=== PATIENT | female | born 1950 | race Caucasian/White ===

== ENCOUNTER 2016-04-14 15:57 | Inpatient (IN) | payer MEDICARE ==
[~2016-04-14] VITALS: Ht 162.6 cm; Wt 89.7 kg
[~2016-04-14 15:57] MED LIST: ADVIL200 MG PO; ALDACTONE 25MG25 MG PO; AMBIEN 10MG10 MG PO; AMBIEN 5MG TABLE5 MG PO; AMBIEN5 MG PO; AMLODIPINE5 MG PO; ASPIR-LOW81 MG PO; ASPIRIN E.C. 8181 MG PO; ATIVAN; BLOOD PRESSURE MED PO; CELEXA; CHLORASEPTIC 1180 M3 MM; CLOPIDOGREL PO; COREG12.5 MG PO; CYMBALTA 30MG30 MG PO; DESYREL 50MG50 MG PO; DILANTIN 100MG100 MG PO; DUO-KAPS1 CAP PO; ENALAPRIL10 MG PO; ENALAPRIL20 MG PO; FLEXERIL 1010 MG/TAB PO; HCTZ; HCTZ 25MG TAB25 MG PO; HCTZ 25MG25 MG PO; KEPPRA 500MG500 MG PO; KLONOPIN 1MG1 MG PO; LAMICTAL ODT50 MG TL; LATUDA40 MG PO; LEXAPRO 10MG10 MG PO; LEXAPRO10 MG PO; LEXAPRO20 MG PO; LOPRESSOR; METOPROLOL SUCC50 MG PO; MYRBETR25MG PO; NORCO 325 MG-51 TAB PO; NORVASC 10MG10 MG; NORVASC 10MG10 MG PO; NORVASC 5MG5 MG/TAB PO; NORVASC2.5 MG PO; NORVASC5 MG PO; OCUVITE1 TA1 PO; OXYCODONE; PHENERGAN 25 TA25 MG PO; PLAVIX 75MG TAB75 MG PO; PREDNISONE20 MG PO; PROAIR HFA0.09 MG/AC IH; PROTONIX 40MG T40 MG PO; PROTONIX20 MG PO; PROTONIX40 MG PO; PROVENTIL0.09 MG/A1 IH; SEROQUEL50 MG PO; SIMVASTATIN20 MG PO; TESSALON P100 MG/CAP PO; TOPROL XL50 MG PO; TUSS PO; UNABLE; VALTREX1 GM PO; VASOTEC 10M10 MG/TAB PO; VASOTEC 2.2.5 MG/TAB PO; VASOTEC20 MG PO; WATER PILL; XANAX 0.5MG0.5 MG PO; ZANTAC 150MG T150 MG PO; ZITHROMAX Z PA250 MG PO; ZOCOR; ZOCOR 20MG20 MG; ZOCOR 20MG20 MG PO; ZOFRAN 4MG T4 MG/TAB PO; ZYPREXA2.5 MG PO
[2016-05-12] MEDS ORDERED: VASOTEC 10M10 MG/TAB PO (09:33)
[2016-05-12] MEDS ORDERED: LASIX 40MG TABL40 MG PO (09:34)
[2016-05-12] MEDS ORDERED: COREG 25MG25 MG/TAB PO (09:34)
[2016-05-12] MEDS ORDERED: VITAMIN C500 MG PO (09:35)
[2016-05-12] MEDS ORDERED: FOLIC ACID 40400 MCG PO (09:35)
[2016-05-12] MEDS ORDERED: FERROUS SU325 MG/TAB PO (09:35)
[2016-05-13] VITALS (19 sets, daily range): BP systolic 76–132; BP diastolic 36–83; PULSE 44–66; TEMP 97.5–99.1
[2016-05-14] VITALS (9 sets, daily range): BP systolic 98–158; BP diastolic 40–65; PULSE 68–80; TEMP 97.5–100.2
[2016-05-14 06:13] LABS: HEMATOCRIT 34.9 % (37.0-47.0); HEMOGLOBIN 11.2 g/dl (12.5-16.0)
[2016-05-15] VITALS (7 sets, daily range): BP systolic 100–126; BP diastolic 34–73; PULSE 66–71; TEMP 97.8–98.8
[2016-05-15 07:40] LABS: HEMATOCRIT 34.3 % (37.0-47.0); HEMOGLOBIN 11.3 g/dl (12.5-16.0)
[2016-05-16] VITALS (17 sets, daily range): BP systolic 76–126; BP diastolic 32–63; PULSE 50–88; TEMP 97.3–98.5
[2016-05-16] MEDS ORDERED: ASPI325T6 PO (07:03)
[2016-05-16] MEDS ORDERED: TYLENOL 500MG500 MG PO (07:04)
[2016-05-16] MEDS ORDERED: ROXICODONE 55 MG/TAB PO (07:04)
[2016-05-16] MEDS ORDERED: COLACE 100100 MG/CAP PO (07:06)
[2016-05-16 12:30] LABS: HEMOGLOBIN 10.3 g/dl (12.5-16.0)
[2016-05-16 14:48] LABS: BASO % 0.3 % (0.0-2.0); EOS # 0.2 (0.0-0.7); EOS % 1.6 % (0-4.0); GRAN # 8.2 (1.4-6.5); GRAN % 76.6 % (42.2-75.2); LYMPH # 1.4 (1.2-3.4); LYMPH % 12.8 % (20.0-51.0); MEAN CELL VOLUME 94 fl (80.0-100.0); MEAN CORPUSCULAR HEMOGLOBIN 31 pg (27.0-31.0); MEAN CORPUSCULAR HGB CONC 33 g/dl (33.0-37.0); MEAN PLATELET VOLUME 11.3 fl (7.4-10.4); MONO # 0.9 (0.1-0.6); PLATELET COUNT 202 K/mm3 (130-400); RED BLOOD COUNT 3.34 M/mm3 (4.10-5.30); REDCELL DISTRIBUTION WIDTH-CV 13.3 % (11.5-14.5); WHITE BLOOD COUNT 10.6 K/mm3 (4.8-10.8)
[2016-05-16 15:04] LABS: HYALINE CAST >12 /lpf; PH 5 (5-8); URINE APPEARANCE Hazy; URINE BACTERIA None Seen /hpf; URINE BILIRUBIN Negative (NEGATIVE); URINE BLOOD Negative (NEGATIVE); URINE COLOR Yellow; URINE GLUCOSE Negative (NEGATIVE); URINE KETONE Negative (NEGATIVE); URINE RBC 0-2 /hpf; URINE UROBILINOGEN Negative (NEGATIVE); URINE WBC 0-2 /hpf
[2016-05-16 15:31] LABS: CALCIUM 8.5 mg/dL (8.4-10.2); CREATININE, serum 1.35 mg/dL (0.52-1.25); POTASSIUM 3.9 mmol/L (3.4-5.0)
[2016-05-16 15:51] LABS: ADJUSTED CALCIUM 9.1 mg/dL (8.4-10.2); ALBUMIN 3.3 gm/dL (3.5-5.0); BILIRUBIN,TOTAL 1.1 mg/dL (0.0-1.0); TOTAL PROTEIN 6.2 gm/dL (6.4-8.2)
[2016-05-17] VITALS (7 sets, daily range): BP systolic 105–140; BP diastolic 43–59; PULSE 61–73; TEMP 97.7–98.6
[2016-05-17 16:36] LABS: BASO % 0.4 % (0.0-2.0); EOS # 0.2 (0.0-0.7); EOS % 2.3 % (0-4.0); GRAN # 5.5 (1.4-6.5); GRAN % 71.6 % (42.2-75.2); LYMPH # 1.4 (1.2-3.4); LYMPH % 17.5 % (20.0-51.0); MEAN CELL VOLUME 94 fl (80.0-100.0); MEAN CORPUSCULAR HGB CONC 33 g/dl (33.0-37.0); MEAN PLATELET VOLUME 10.3 fl (7.4-10.4); MONO # 0.6 (0.1-0.6); MONO % 7.9 % (1.7-9.3); PLATELET COUNT 235 K/mm3 (130-400); RED BLOOD COUNT 3.18 M/mm3 (4.10-5.30); REDCELL DISTRIBUTION WIDTH-CV 13.3 % (11.5-14.5); WHITE BLOOD COUNT 7.7 K/mm3 (4.8-10.8)
[2016-05-17 16:53] LABS: HEMOGLOBIN 9.9 g/dl (12.5-16.0); MEAN CORPUSCULAR HEMOGLOBIN 31 pg (27.0-31.0)
[2016-05-18 01:41] VITALS: BP 110/45; PULSE 62; TEMP 98.5
[2016-05-18 04:56] VITALS: BP 146/58; PULSE 87; TEMP 98.5
[2016-05-18 11:37] VITALS: BP 130/58; PULSE 72; TEMP 97.9
[2016-05-18 14:30] VITALS: BP 133/54; PULSE 71; TEMP 98.8
[2016-05-18] MEDS ORDERED: VASOTEC 10M10 MG/TAB PO (15:20)
[2016-05-18] MEDS ORDERED: COREG 3.123.125 MG/T PO (15:21)
[2016-05-18] MEDS ORDERED: LASIX 40MG TABL40 MG PO (15:22)
== END 2016-05-18 17:25 | disposition home or self-care (01) | DRG 470 ==
LOC: JCC 05-13 05:14
PROVIDERS: Internal Medicine; Orthopaedic Surgery; Physician Assistant
PROC: 0SRD0J9 Replacement of Left Knee Joint with Synthetic Substitute, Cemented, Open Approach (ICD-10-PCS; principal; 2016-05-13 07:30)
DX: M17.12 Unilateral primary osteoarthritis, left knee (principal); I12.9 Hypertensive chronic kidney disease with stage 1 through stage 4 chronic kidney disease, or unspecified chronic kidney disease; N18.3 Chronic kidney disease, stage 3 (moderate); E86.1 Hypovolemia; I95.81 Postprocedural hypotension; R09.02 Hypoxemia
CPT/HCPCS: 99223; 99232-AI; 99233-AI; A4315; A9284; C1713; C1776; J0690; J1650; J2250; J2270; J2370; J2704; J7030; J7040; J7120; Q9967

== ENCOUNTER → 2016-04-16 | Outpatient (CLI) | payer MEDICARE ==
[~2016-04-16] MED LIST changes: +ASPI325T6 PO; +ASPIRIN 81M81 MG/TA2 PO; +COLACE 100100 MG/CAP PO; +COREG 25MG25 MG/TAB PO; +COREG 3.123.125 MG/T PO; +FERROUS SU325 MG/TAB PO; +FOLIC ACID 40400 MCG PO; +LASIX 40MG TABL40 MG PO; +ROXICODONE 55 MG/TAB PO; +TYLENOL 500MG500 MG PO; +VITAMIN C500 MG PO
== END ==
LOC: COL.PUL 04-11 13:00
DX: R06.02 Shortness of breath (principal)
CPT/HCPCS: J7674

== ENCOUNTER → 2016-05-05 | Outpatient (CLI) | payer MEDICARE | LOC: COL.LAB 14:09 | DX: Z01.812 Encounter for preprocedural laboratory examination (principal); M25.861 Other specified joint disorders, right knee ==

== ENCOUNTER → 2016-07-09 | Outpatient (CLI) | payer MEDICARE ==
[2016-07-09 17:25] LABS: HEMATOCRIT 37.4 % (37.0-47.0); HEMOGLOBIN 12.4 g/dl (12.5-16.0); MEAN CELL VOLUME 92 fl (80.0-100.0); MEAN CORPUSCULAR HEMOGLOBIN 31 pg (27.0-31.0); MEAN CORPUSCULAR HGB CONC 33 g/dl (33.0-37.0); MEAN PLATELET VOLUME 9.9 fl (7.4-10.4); PLATELET COUNT 260 K/mm3 (130-400); RED BLOOD COUNT 4.05 M/mm3 (4.10-5.30); REDCELL DISTRIBUTION WIDTH-CV 13.3 % (11.5-14.5)
[2016-07-09 17:57] LABS: ERYTHROCYTE SEDIMENTATION RATE 23 mm/hr (0-30)
== END ==
LOC: COL.LAB 16:06
PROVIDERS: Physician Assistant
DX: M79.89 Other specified soft tissue disorders (principal); Z96.652 Presence of left artificial knee joint

== ENCOUNTER 2016-11-01 10:36 | Observation (INO) | payer MEDICARE ==
[~2016-11-01] VITALS: Ht 162.6 cm; Wt 93.9 kg
[~2016-11-01 10:36] MED LIST changes: -ASPIRIN 81M81 MG/TA2 PO
[2016-11-01 11:34] LABS: BASO % 0.4 % (0.0-2.0); EOS # 0.3 (0.0-0.7); EOS % 3.6 % (0-4.0); GRAN # 4.2 (1.4-6.5); GRAN % 59.1 % (42.2-75.2); HEMATOCRIT 36.6 % (37.0-47.0); HEMOGLOBIN 12.5 g/dl (12.5-16.0); LYMPH % 29.1 % (20.0-51.0); MEAN CELL VOLUME 93 fl (80.0-100.0); MEAN CORPUSCULAR HEMOGLOBIN 32 pg (27.0-31.0); MEAN CORPUSCULAR HGB CONC 34 g/dl (33.0-37.0); MONO # 0.5 (0.1-0.6); MONO % 7.4 % (1.7-9.3); PLATELET COUNT 225 K/mm3 (130-400); RED BLOOD COUNT 3.95 M/mm3 (4.10-5.30); REDCELL DISTRIBUTION WIDTH-CV 13.2 % (11.5-14.5)
[2016-11-01 11:43] LABS: PH 6 (5-8); SQUAMOUS EPITHELIAL 0-2 /hpf; URINE APPEARANCE Clear; URINE BACTERIA Rare /hpf; URINE BILIRUBIN Negative (NEGATIVE); URINE BLOOD Negative (NEGATIVE); URINE COLOR Yellow; URINE GLUCOSE Negative (NEGATIVE); URINE KETONE Negative (NEGATIVE); URINE RBC 0-2 /hpf; URINE UROBILINOGEN Negative (NEGATIVE); URINE WBC 0-2 /hpf
[2016-11-01 11:46] LABS: ADJUSTED CALCIUM 9.2 mg/dL (8.4-10.2); ALANINE AMINOTRANSFERASE 29 U/L (9-52); ALBUMIN 4.2 gm/dL (3.5-5.0); ALKALINE PHOSPHATASE 70 U/L (50-136); ANION GAP 10 mmol/L (7-16); BILIRUBIN,TOTAL 0.6 mg/dL (0.0-1.0); BLOOD UREA NITROGEN 25 mg/dL (7-17); CALCIUM 9.4 mg/dL (8.4-10.2); CARBON DIOXIDE 22 mmol/L (22-30); CHLORIDE 106 mmol/L (98-107); CREATININE, serum 1.05 mg/dL (0.52-1.25); GLUCOSE 97 mg/dL (74-106); LIPASE 113 U/L (23-300); POTASSIUM 4.5 mmol/L (3.4-5.0); SODIUM 139 mmol/L (137-145); TOTAL PROTEIN 7.4 gm/dL (6.4-8.2)
[2016-11-01 12:02] LABS: TROPONIN-I < 0.012 ng/mL (0.000-0.034)
[2016-11-01 12:03] LABS: AMPHETAMINE URINE NEGATIVE; BARBITURATES URINE NEGATIVE; BENZODIAZEPINES URINE NEGATIVE; BUPRENORPHINE URINE NEGATIVE; METHADONE URINE NEGATIVE; OPIATES URINE NEGATIVE; OXYCODONE URINE NEGATIVE; PHENCYCLIDINE URINE NEGATIVE; PROPOXYPHENE URINE NEGATIVE; THC CANNABINOIDS URINE NEGATIVE
[2016-11-01] MEDS ORDERED: PLAVIX 75MG TAB75 MG PO (13:54)
[2016-11-01 16:42] VITALS: BP 148/61; PULSE 57; TEMP 97.4
[2016-11-01] MEDS ORDERED: ASPIRIN 81M81 MG/TA2 PO (20:50)
[2016-11-02 00:11] VITALS: BP 134/50; PULSE 70; TEMP 97.5
[2016-11-02 05:03] VITALS: BP 142/63; PULSE 71; TEMP 98.5
[2016-11-02 09:34] VITALS: BP 136/61; PULSE 84; TEMP 98.7
[2016-11-02 12:20] VITALS: BP 154/76; PULSE 74; TEMP 98.6
[2016-11-02 16:04] VITALS: BP 149/62; PULSE 82; TEMP 98.2
[2016-11-02 20:27] VITALS: BP 149/49; PULSE 77; TEMP 98.3
[2016-11-03 00:02] VITALS: BP 141/47; PULSE 71; TEMP 98.6
[2016-11-03 04:13] VITALS: BP 156/74; PULSE 67; TEMP 98.5
[2016-11-03 08:40] VITALS: BP 152/61; PULSE 85; TEMP 97.5
[2016-11-03] MEDS ORDERED: PLAVIX 75MG TAB75 MG PO (10:08)
[2016-11-03 12:00] VITALS: BP 127/57; PULSE 75; TEMP 98
== END 2016-11-03 17:27 | disposition home or self-care (01) ==
LOC: COL.ER 10:36 → MEDICAL 15:13
PROVIDERS: Emergency Medicine
DX: R41.0 Disorientation, unspecified (principal); T42.4X5A Adverse effect of benzodiazepines, initial encounter; R27.0 Ataxia, unspecified; I69.311 Memory deficit following cerebral infarction; I12.9 Hypertensive chronic kidney disease with stage 1 through stage 4 chronic kidney disease, or unspecified chronic kidney disease; N18.9 Chronic kidney disease, unspecified; E66.9 Obesity, unspecified; F32.9 Major depressive disorder, single episode, unspecified; F43.10 Post-traumatic stress disorder, unspecified; F41.8 Other specified anxiety disorders; D86.9 Sarcoidosis, unspecified; Z96.652 Presence of left artificial knee joint; Z79.82 Long term (current) use of aspirin; Z79.01 Long term (current) use of anticoagulants; G40.909 Epilepsy, unspecified, not intractable, without status epilepticus; R47.81 Slurred speech
CPT/HCPCS: A9585; G0378; G8978-GP; G8979-GP; J1650; J7030

== ENCOUNTER 2017-01-07 12:26 | Day surgery (SDC) | payer MEDICARE ==
[2008-01-18 22:48] VITALS: BP 156/78
[~2017-01-07] VITALS: Ht 162.6 cm; Wt 96.3 kg
[~2017-01-07 12:26] MED LIST changes: +ASPIRIN 81M81 MG/TA2 PO
[2017-01-07 13:10] VITALS: BP 142/71; PULSE 65; TEMP 97.5
[2017-01-07] MEDS ORDERED: NORVASC2.5 MG PO (14:02)
[2017-01-07] MEDS ORDERED: COREG 25MG25 MG/TAB PO (14:03)
[2017-01-07] MEDS ORDERED: ASPIRIN 81M81 MG/TA2 PO (14:03)
[2017-01-07] MEDS ORDERED: KLONOPIN 0.5MG0.5 MG PO (14:04)
[2017-01-07] MEDS ORDERED: LEXAPRO20 MG PO (14:06)
[2017-01-07] MEDS ORDERED: VASOTEC 10M10 MG/TAB PO (14:06)
[2017-01-07] MEDS ORDERED: LASIX 20MG TABL20 MG PO (14:09)
[2017-01-07] MEDS ORDERED: PROTONIX20 MG PO (14:10)
[2017-01-07] MEDS ORDERED: DESYREL 50MG50 MG PO (14:11)
[2017-01-07] MEDS ORDERED: D3-5050000 IU (14:12)
[2017-01-07 16:26] VITALS: BP 151/67; PULSE 70
[2017-01-07 16:41] VITALS: BP 129/62; PULSE 66
[2017-01-07 16:56] VITALS: BP 125/83; PULSE 64
[2017-01-07 17:11] VITALS: BP 122/52; PULSE 70
== END 2017-01-07 17:41 | disposition home or self-care (01) ==
LOC: SDCO 12:26
DX: N39.41 Urge incontinence (principal); R39.15 Urgency of urination; I69.311 Memory deficit following cerebral infarction; I12.9 Hypertensive chronic kidney disease with stage 1 through stage 4 chronic kidney disease, or unspecified chronic kidney disease; N18.3 Chronic kidney disease, stage 3 (moderate); D86.9 Sarcoidosis, unspecified; Z80.9 Family history of malignant neoplasm, unspecified; J45.909 Unspecified asthma, uncomplicated; J40 Bronchitis, not specified as acute or chronic; G47.33 Obstructive sleep apnea (adult) (pediatric); K21.9 Gastro-esophageal reflux disease without esophagitis; F43.10 Post-traumatic stress disorder, unspecified; F29 Unspecified psychosis not due to a substance or known physiological condition; G43.909 Migraine, unspecified, not intractable, without status migrainosus; G89.29 Other chronic pain; M19.90 Unspecified osteoarthritis, unspecified site; Z79.01 Long term (current) use of anticoagulants; F32.9 Major depressive disorder, single episode, unspecified; Z96.652 Presence of left artificial knee joint
CPT/HCPCS: C1767; C1778; C1787; C1894; J0690; J2405; J2704; J3010; J7030

== ENCOUNTER 2017-03-15 10:54 | Inpatient (IN) | payer MEDICARE ==
[~2017-03-15] VITALS: Ht 162.6 cm; Wt 99.0 kg
[~2017-03-15 10:54] MED LIST changes: +D3-5050000 IU PO; +KLONOPIN 0.5MG0.5 MG PO; +LASIX 20MG TABL20 MG PO
[2017-03-15 11:21] LABS: BASO % 0.5 % (0.0-2.0); EOS # 0.2 (0.0-0.7); EOS % 2.3 % (0-4.0); GRAN # 4.9 (1.4-6.5); GRAN % 60.3 % (42.2-75.2); HEMATOCRIT 40.6 % (37.0-47.0); HEMOGLOBIN 13.9 g/dl (12.5-16.0); LYMPH # 2.5 (1.2-3.4); LYMPH % 30.8 % (20.0-51.0); MEAN CELL VOLUME 94 fl (80.0-100.0); MEAN CORPUSCULAR HEMOGLOBIN 32 pg (27.0-31.0); MEAN CORPUSCULAR HGB CONC 34 g/dl (33.0-37.0); MEAN PLATELET VOLUME 9.9 fl (7.4-10.4); MONO # 0.5 (0.1-0.6); MONO % 5.5 % (1.7-9.3); PLATELET COUNT 259 K/mm3 (130-400); RED BLOOD COUNT 4.34 M/mm3 (4.10-5.30); REDCELL DISTRIBUTION WIDTH-CV 12.7 % (11.5-14.5)
[2017-03-15 11:30] LABS: ALANINE AMINOTRANSFERASE 31 U/L (9-52); ALBUMIN 4.3 gm/dL (3.5-5.0); ALKALINE PHOSPHATASE 101 U/L (50-136); ANION GAP 11 mmol/L (7-16); AST,SGOT 20 U/L (15-37); BILIRUBIN,TOTAL 0.6 mg/dL (0.0-1.0); BLOOD UREA NITROGEN 17 mg/dL (7-17); CALCIUM 9.3 mg/dL (8.4-10.2); CARBON DIOXIDE 20 mmol/L (22-30); CHLORIDE 110 mmol/L (98-107); CREATININE, serum 0.86 mg/dL (0.52-1.25); GLUCOSE 98 mg/dL (74-106); LIPASE 70 U/L (23-300); POTASSIUM 3.9 mmol/L (3.4-5.0); SODIUM 141 mmol/L (137-145); TOTAL PROTEIN 7.5 gm/dL (6.4-8.2)
[2017-03-15 11:49] LABS: TROPONIN-I < 0.012 ng/mL (0.000-0.034)
[2017-03-15 16:52] LABS: PROTHROMBIN TIME 11.4 SECONDS (9.7-12.8)
[2017-03-15 16:55] LABS: PARTIAL THROMBOPLASTIN TIME 28.2 SECONDS (26.0-37.0)
[2017-03-15 17:09] VITALS: BP 126/53; PULSE 69; TEMP 97.8
[2017-03-15 17:11] VITALS: BP 126/53; PULSE 69; TEMP 97.8
[2017-03-15 19:27] VITALS: BP 102/30; BP 110/45; PULSE 72; TEMP 97.8
[2017-03-15 23:37] VITALS: BP 103/45; PULSE 64; TEMP 98.1
[2017-03-16 03:21] VITALS: BP 103/55; PULSE 57; TEMP 98
[2017-03-16 07:18] LABS: BASO % 0.3 % (0.0-2.0); EOS # 0.2 (0.0-0.7); EOS % 3.8 % (0-4.0); GRAN # 3.3 (1.4-6.5); LYMPH # 1.9 (1.2-3.4); LYMPH % 32.3 % (20.0-51.0); MEAN CELL VOLUME 97 fl (80.0-100.0); MEAN CORPUSCULAR HGB CONC 33 g/dl (33.0-37.0); MEAN PLATELET VOLUME 10.2 fl (7.4-10.4); MONO # 0.3 (0.1-0.6); MONO % 5.7 % (1.7-9.3); PLATELET COUNT 222 K/mm3 (130-400); RED BLOOD COUNT 3.72 M/mm3 (4.10-5.30)
[2017-03-16 07:32] LABS: HEMATOCRIT 36.2 % (37.0-47.0); HEMOGLOBIN 11.8 g/dl (12.5-16.0); MEAN CORPUSCULAR HEMOGLOBIN 32 pg (27.0-31.0)
[2017-03-16 07:37] LABS: CALCIUM 8.2 mg/dL (8.4-10.2); CHOLESTEROL RISK RATIO 4.7; CREATININE, serum 0.84 mg/dL (0.52-1.25)
[2017-03-16 07:56] VITALS: BP 113/54; PULSE 57; TEMP 97.3
[2017-03-16 08:02] LABS: THYROID STIMULATING HORMONE 3.4 uIU/mL (0.465-4.680)
[2017-03-16 11:52] VITALS: BP 104/40; PULSE 53; TEMP 97.9
[2017-03-16 15:43] VITALS: BP 103/38; PULSE 57; TEMP 97.7
[2017-03-16 17:03] LABS: MEAN CELL VOLUME 97 fl (80.0-100.0); MEAN CORPUSCULAR HGB CONC 33 g/dl (33.0-37.0); MEAN PLATELET VOLUME 10.2 fl (7.4-10.4); PLATELET COUNT 218 K/mm3 (130-400); RED BLOOD COUNT 3.67 M/mm3 (4.10-5.30)
[2017-03-16 17:05] LABS: HEMATOCRIT 35.5 % (37.0-47.0); HEMOGLOBIN 11.7 g/dl (12.5-16.0); MEAN CORPUSCULAR HEMOGLOBIN 32 pg (27.0-31.0)
[2017-03-16 17:10] LABS: INR 0.9 (0.8-3.0); PROTHROMBIN TIME 10.6 SECONDS (9.7-12.8)
[2017-03-16 17:12] LABS: PARTIAL THROMBOPLASTIN TIME 27.9 SECONDS (26.0-37.0)
[2017-03-16 17:15] LABS: CALCIUM 8.6 mg/dL (8.4-10.2); CREATININE, serum 0.88 mg/dL (0.52-1.25); POTASSIUM 4.3 mmol/L (3.4-5.0)
[2017-03-16 19:38] VITALS: BP 118/47; PULSE 63; TEMP 98.1
[2017-03-16 23:57] VITALS: BP 100/43; PULSE 57; TEMP 98.2
[2017-03-17] VITALS (14 sets, daily range): BP systolic 95–132; BP diastolic 43–64; PULSE 51–76; TEMP 97.5–98.4
[2017-03-18 02:31] VITALS: BP 136/57; PULSE 63; TEMP 97.4
[2017-03-18 07:58] LABS: MEAN CELL VOLUME 95 fl (80.0-100.0); MEAN CORPUSCULAR HGB CONC 33 g/dl (33.0-37.0); MEAN PLATELET VOLUME 10.5 fl (7.4-10.4); PLATELET COUNT 230 K/mm3 (130-400); RED BLOOD COUNT 3.71 M/mm3 (4.10-5.30); REDCELL DISTRIBUTION WIDTH-CV 12.6 % (11.5-14.5)
[2017-03-18 08:03] LABS: HEMATOCRIT 35.3 % (37.0-47.0); HEMOGLOBIN 11.8 g/dl (12.5-16.0); MEAN CORPUSCULAR HEMOGLOBIN 32 pg (27.0-31.0)
[2017-03-18 08:05] VITALS: BP 138/60; PULSE 78; TEMP 98.1
[2017-03-18 08:05] LABS: CREATININE, serum 0.77 mg/dL (0.52-1.25); POTASSIUM 4.1 mmol/L (3.4-5.0)
[2017-03-18] MEDS ORDERED: NORCO 325 MG-51 TAB PO (08:50)
[2017-03-18] MEDS ORDERED: ASPIRIN E.C. 8181 MG PO (08:50)
[2017-03-18] MEDS ORDERED: LIPITOR 40MG TA40 MG PO (08:50)
[2017-03-18] MEDS ORDERED: FLEXERIL 1010 MG/TAB PO (08:51)
[2017-03-18 10:01] LABS: BAND 32 % (0-10); LYMPHOCYTE 5 % (20.0-51.0); NEUTROPHILS 62 % (42.0-75.2); PLATELET ESTIMATE NORMAL (NORMAL)
[2017-03-18 10:22] LABS: COLLECTION METHOD CLEAN CATCH
[2017-03-18 10:35] LABS: MUCOUS Present /lpf; PH 6 (5-8); URINE APPEARANCE Clear; URINE BACTERIA None Seen /hpf; URINE BILIRUBIN Negative (NEGATIVE); URINE BLOOD Negative (NEGATIVE); URINE COLOR Yellow; URINE GLUCOSE Negative (NEGATIVE); URINE KETONE Negative (NEGATIVE); URINE LEUKOCYTE ESTERASE Negative (NEGATIVE); URINE NITRATE Negative (NEGATIVE); URINE PROTEIN(semi-quant) Negative (NEGATIVE); URINE RBC None Seen /hpf; URINE UROBILINOGEN Negative (NEGATIVE)
[2017-03-18 12:01] VITALS: BP 125/54; PULSE 62; TEMP 98
== END 2017-03-18 15:15 | disposition home or self-care (01) | DRG 287 ==
LOC: COL.ER 10:54 → MEDICAL 14:42
PROVIDERS: Emergency Medicine; Internal Medicine Pulmonary Disease; Nurse Practitioner Family; Physician Assistant
PROC: B2111ZZ Fluoroscopy of Multiple Coronary Arteries using Low Osmolar Contrast (ICD-10-PCS; principal; 2017-03-17)
PROC: B2151ZZ Fluoroscopy of Left Heart using Low Osmolar Contrast (ICD-10-PCS; 2017-03-17)
PROC: 4A023N7 Measurement of Cardiac Sampling and Pressure, Left Heart, Percutaneous Approach (ICD-10-PCS; 2017-03-17)
DX: R07.89 Other chest pain (principal); I10 Essential (primary) hypertension; D86.0 Sarcoidosis of lung; G40.909 Epilepsy, unspecified, not intractable, without status epilepticus; Z86.73 Personal history of transient ischemic attack (TIA), and cerebral infarction without residual deficits
CPT/HCPCS: 99232-AI; 99239; C1760; C1894; G0378; J1650; J2250; J2270; J2405; J2930; J3010; J7030; Q9967

== ENCOUNTER → 2017-06-04 | Outpatient (CLI) | payer MEDICARE ==
[~2017-06-04] MED LIST changes: +LIPITOR 40MG TA40 MG PO
[2017-06-04 11:19] LABS: HEMATOCRIT 39.3 % (37.0-47.0); HEMOGLOBIN 12.9 g/dl (12.5-16.0); MEAN CELL VOLUME 96 fl (80.0-100.0); MEAN CORPUSCULAR HEMOGLOBIN 32 pg (27.0-31.0); MEAN CORPUSCULAR HGB CONC 33 g/dl (33.0-37.0); MEAN PLATELET VOLUME 10.2 fl (7.4-10.4); PLATELET COUNT 256 K/mm3 (130-400); RED BLOOD COUNT 4.08 M/mm3 (4.10-5.30); REDCELL DISTRIBUTION WIDTH-CV 14.2 % (11.5-14.5)
[2017-06-04 11:47] LABS: ERYTHROCYTE SEDIMENTATION RATE 5 mm/hr (0-30)
== END ==
LOC: COL.LAB 10:21
PROVIDERS: Internal Medicine
DX: Z47.1 Aftercare following joint replacement surgery (principal); Z96.652 Presence of left artificial knee joint

== ENCOUNTER 2017-08-10 11:50 | Inpatient (IN) | payer MEDICARE ==
[~2017-08-10] VITALS: Ht 162.6 cm; Wt 106.9 kg
[2017-08-10] VITALS (430 sets, daily range): BP systolic 121–183; BP diastolic 54–97; PULSE 77–103; TEMP 97–97.2; O2SAT 90–100
[2017-08-10 12:16] LABS: BASO % 0.4 % (0.0-2.0); EOS # 0.2 (0.0-0.7); EOS % 2.1 % (0-4.0); GRAN # 5.6 (1.4-6.5); GRAN % 73.3 % (42.2-75.2); HEMATOCRIT 40.9 % (37.0-47.0); HEMOGLOBIN 13.5 g/dl (12.5-16.0); LYMPH # 1.2 (1.2-3.4); LYMPH % 16.1 % (20.0-51.0); MEAN CELL VOLUME 98 fl (80.0-100.0); MEAN CORPUSCULAR HEMOGLOBIN 32 pg (27.0-31.0); MEAN CORPUSCULAR HGB CONC 33 g/dl (33.0-37.0); MEAN PLATELET VOLUME 9.5 fl (7.4-10.4); MONO # 0.6 (0.1-0.6); MONO % 7.6 % (1.7-9.3); PLATELET COUNT 247 K/mm3 (130-400); RED BLOOD COUNT 4.19 M/mm3 (4.10-5.30); REDCELL DISTRIBUTION WIDTH-CV 14.5 % (11.5-14.5)
[2017-08-10 12:40] LABS: ALBUMIN 4.1 gm/dL (3.5-5.0); BILIRUBIN,TOTAL 0.6 mg/dL (0.0-1.0); C-REACTIVE PROTEIN 0.9 mg/dL (0.0-0.9); CALCIUM 9.4 mg/dL (8.4-10.2); CREATININE, serum 0.92 mg/dL (0.52-1.25); POTASSIUM 4.3 mmol/L (3.4-5.0); TOTAL PROTEIN 7.9 gm/dL (6.4-8.2)
[2017-08-10] MEDS ORDERED: COREG 25MG25 MG/TAB PO (14:21)
[2017-08-10] MEDS ORDERED: NORVASC 10MG10 MG PO (14:21)
[2017-08-10] MEDS ORDERED: LIPITOR 40MG TA40 MG PO (14:21)
[2017-08-10] MEDS ORDERED: BUSPAR5 MG PO (14:21)
[2017-08-10] MEDS ORDERED: ASPIRIN 81M81 MG/TA2 PO (14:21)
[2017-08-10] MEDS ORDERED: VANTIN100 MG (14:22)
[2017-08-10] MEDS ORDERED: FLEXERIL 1010 MG/TAB PO (14:22)
[2017-08-10] MEDS ORDERED: VASOTEC 10M10 MG/TAB PO (14:22)
[2017-08-10] MEDS ORDERED: LEXAPRO20 MG PO (14:22)
[2017-08-10] MEDS ORDERED: PRILOSEC 20MG20 MG PO (14:23)
[2017-08-10] MEDS ORDERED: LASIX 40MG TABL40 MG PO (14:23)
[2017-08-10] MEDS ORDERED: MOBIC15 MG PO (14:23)
[2017-08-10] MEDS ORDERED: NORCO 325 MG-51 TAB PO (14:23)
[2017-08-10] MEDS ORDERED: VITAMIN D 1001000 IU (14:24)
[2017-08-10] MEDS ORDERED: AMBIEN 10MG10 MG PO (14:24)
[2017-08-10] MEDS ORDERED: PERCOCET 325 MG1 TA2 PO (14:24)
[2017-08-10 21:46] LABS: ARTERIAL BLD GAS O2 SATURATION 94.3 % (92-100); ARTERIAL BLD GAS TCO2 CT 16.7; ARTERIAL BLOOD GAS BASE EXCESS -11.3 (-2-2); ARTERIAL BLOOD GAS HCO3 15.5 meq/L (22-26); ARTERIAL BLOOD GAS PCO2 38.3 mmHg (35-45); ARTERIAL BLOOD GAS PO2 82.1 mmHg (80-100); ARTERIAL BLOOD GAS pH 7.23 (7.35-7.45)
[2017-08-10 23:07] LABS: ARTERIAL BLD GAS O2 SATURATION 94.4 % (92-100); ARTERIAL BLD GAS TCO2 CT 15.7; ARTERIAL BLOOD GAS BASE EXCESS -10.9 (-2-2); ARTERIAL BLOOD GAS HCO3 14.7 meq/L (22-26); ARTERIAL BLOOD GAS PCO2 32.4 mmHg (35-45); ARTERIAL BLOOD GAS PO2 78.9 mmHg (80-100); ARTERIAL BLOOD GAS pH 7.28 (7.35-7.45)
[2017-08-10 23:48] LABS: COLLECTION METHOD CLEAN CATCH
[2017-08-10 23:56] LABS: MUCOUS Present /lpf; PH 5 (5-8); SQUAMOUS EPITHELIAL 0-2 /hpf; URINE APPEARANCE Clear; URINE BACTERIA None Seen /hpf; URINE BILIRUBIN Negative (NEGATIVE); URINE BLOOD Negative (NEGATIVE); URINE COLOR Yellow; URINE GLUCOSE 1+ (NEGATIVE); URINE KETONE Negative (NEGATIVE); URINE LEUKOCYTE ESTERASE Negative (NEGATIVE); URINE NITRATE Negative (NEGATIVE); URINE PROTEIN(semi-quant) Negative (NEGATIVE); URINE RBC 0-2 /hpf; URINE UROBILINOGEN Negative (NEGATIVE)
[2017-08-11] VITALS (1390 sets, daily range): BP systolic 120–159; BP diastolic 53–77; PULSE 46–81; TEMP 96.8–97.6; O2SAT 76–100
[2017-08-11 05:18] LABS: ARTERIAL BLD GAS O2 SATURATION 94.4 % (92-100); ARTERIAL BLD GAS TCO2 CT 21.1; ARTERIAL BLOOD GAS BASE EXCESS -2.5 (-2-2); ARTERIAL BLOOD GAS HCO3 20.2 meq/L (22-26); ARTERIAL BLOOD GAS PCO2 29.4 mmHg (35-45); ARTERIAL BLOOD GAS PO2 68.7 mmHg (80-100); ARTERIAL BLOOD GAS pH 7.46 (7.35-7.45)
[2017-08-11 06:02] LABS: HEMATOCRIT 37.5 % (37.0-47.0); HEMOGLOBIN 12.4 g/dl (12.5-16.0); MEAN CELL VOLUME 98 fl (80.0-100.0); MEAN CORPUSCULAR HEMOGLOBIN 32 pg (27.0-31.0); MEAN CORPUSCULAR HGB CONC 33 g/dl (33.0-37.0); MEAN PLATELET VOLUME 9.8 fl (7.4-10.4); PLATELET COUNT 231 K/mm3 (130-400); RED BLOOD COUNT 3.84 M/mm3 (4.10-5.30); REDCELL DISTRIBUTION WIDTH-CV 14.8 % (11.5-14.5)
[2017-08-11 06:14] LABS: BAND 1 % (0-10); LYMPHOCYTE 6 % (20.0-51.0); NEUTROPHILS 92 % (42.0-75.2)
[2017-08-11 06:15] LABS: PLATELET ESTIMATE NORMAL (NORMAL)
[2017-08-11 06:19] LABS: ALBUMIN 3.6 gm/dL (3.5-5.0); BILIRUBIN,TOTAL 0.4 mg/dL (0.0-1.0); CALCIUM 8.7 mg/dL (8.4-10.2); CREATININE, serum 0.69 mg/dL (0.52-1.25); MAGNESIUM 1.8 mg/dL (1.6-2.3); PHOSPHOROUS 2.5 mg/dL (2.5-4.5); POTASSIUM 4.3 mmol/L (3.4-5.0)
[2017-08-12] VITALS (1279 sets, daily range): BP systolic 116–145; BP diastolic 57–68; PULSE 53–92; TEMP 96.7–97.1; O2SAT 84–100
[2017-08-12 00:15] LABS: C-ANCA 7 U/mL (0-99)
[2017-08-12 05:07] LABS: ARTERIAL BLD GAS O2 SATURATION 92.7 % (92-100); ARTERIAL BLD GAS TCO2 CT 22.6; ARTERIAL BLOOD GAS HCO3 21.5 meq/L (22-26); ARTERIAL BLOOD GAS PCO2 36.7 mmHg (35-45); ARTERIAL BLOOD GAS PO2 68.2 mmHg (80-100); ARTERIAL BLOOD GAS pH 7.39 (7.35-7.45)
[2017-08-12 06:11] LABS: HEMOGLOBIN 11.3 g/dl (12.5-16.0); MEAN CELL VOLUME 97 fl (80.0-100.0); MEAN CORPUSCULAR HEMOGLOBIN 32 pg (27.0-31.0); MEAN CORPUSCULAR HGB CONC 33 g/dl (33.0-37.0); MEAN PLATELET VOLUME 9.8 fl (7.4-10.4); PLATELET COUNT 223 K/mm3 (130-400); RED BLOOD COUNT 3.52 M/mm3 (4.10-5.30); REDCELL DISTRIBUTION WIDTH-CV 15.3 % (11.5-14.5)
[2017-08-12 06:28] LABS: ALBUMIN 3.1 gm/dL (3.5-5.0); BILIRUBIN,TOTAL 0.3 mg/dL (0.0-1.0); CALCIUM 8.5 mg/dL (8.4-10.2); CREATININE, serum 0.68 mg/dL (0.52-1.25); PHOSPHOROUS 2.4 mg/dL (2.5-4.5); POTASSIUM 3.5 mmol/L (3.4-5.0)
[2017-08-12 06:30] LABS: HEMATOCRIT 34.3 % (37.0-47.0)
[2017-08-12 08:47] LABS: BAND 2 % (0-10); LYMPHOCYTE 4 % (20.0-51.0); NEUTROPHILS 92 % (42.0-75.2)
[2017-08-12 08:51] LABS: PLATELET ESTIMATE NORMAL (NORMAL)
[2017-08-12 14:41] LABS: ANGIOTENSIN CONVERTING ENZYME 29 U/L (8 - 53)
[2017-08-13] VITALS (884 sets, daily range): BP systolic 116–152; BP diastolic 57–89; PULSE 61–89; TEMP 97.3–98.6; O2SAT 88–98
[2017-08-13 05:26] LABS: ARTERIAL BLD GAS O2 SATURATION 96.1 % (92-100); ARTERIAL BLD GAS TCO2 CT 22.9; ARTERIAL BLOOD GAS BASE EXCESS -3.2 (-2-2); ARTERIAL BLOOD GAS HCO3 21.7 meq/L (22-26); ARTERIAL BLOOD GAS PCO2 38.7 mmHg (35-45); ARTERIAL BLOOD GAS PO2 88.6 mmHg (80-100); ARTERIAL BLOOD GAS pH 7.37 (7.35-7.45)
[2017-08-13 06:08] LABS: HEMOGLOBIN 11.1 g/dl (12.5-16.0); MEAN CELL VOLUME 100 fl (80.0-100.0); MEAN CORPUSCULAR HEMOGLOBIN 32 pg (27.0-31.0); MEAN CORPUSCULAR HGB CONC 32 g/dl (33.0-37.0); MEAN PLATELET VOLUME 10.1 fl (7.4-10.4); PLATELET COUNT 197 K/mm3 (130-400); RED BLOOD COUNT 3.46 M/mm3 (4.10-5.30); REDCELL DISTRIBUTION WIDTH-CV 15.5 % (11.5-14.5)
[2017-08-13 06:15] LABS: HEMATOCRIT 34.7 % (37.0-47.0)
[2017-08-13 06:35] LABS: ALBUMIN 2.9 gm/dL (3.5-5.0); BILIRUBIN,TOTAL 0.3 mg/dL (0.0-1.0); CALCIUM 8.1 mg/dL (8.4-10.2); CREATININE, serum 0.71 mg/dL (0.52-1.25); MAGNESIUM 2.2 mg/dL (1.6-2.3); PHOSPHOROUS 2.6 mg/dL (2.5-4.5); TOTAL PROTEIN 5.7 gm/dL (6.4-8.2)
[2017-08-13 07:15] LABS: ANISOCYTOSIS 1+; BAND 4 % (0-10); EOSINOPHIL 1 % (0-4); HYPOCHROMIA 1+; LYMPHOCYTE 4 % (20.0-51.0); NEUTROPHILS 91 % (42.0-75.2); PLATELET ESTIMATE NORMAL (NORMAL)
[2017-08-13] MEDS ORDERED: AMBIEN 5MG TABLE5 MG PO (23:40)
[2017-08-14] VITALS (1321 sets, daily range): BP systolic 128–154; BP diastolic 72–84; PULSE 52–79; TEMP 97.5–98.7; O2SAT 86–100
[2017-08-14 04:11] LABS: BASO % 0.1 % (0.0-2.0); GRAN # 9.6 (1.4-6.5); GRAN % 88.4 % (42.2-75.2); HEMOGLOBIN 10.6 g/dl (12.5-16.0); LYMPH # 0.7 (1.2-3.4); MEAN CELL VOLUME 99 fl (80.0-100.0); MEAN CORPUSCULAR HEMOGLOBIN 32 pg (27.0-31.0); MEAN CORPUSCULAR HGB CONC 33 g/dl (33.0-37.0); MONO # 0.4 (0.1-0.6); MONO % 3.2 % (1.7-9.3); PLATELET COUNT 156 K/mm3 (130-400); RED BLOOD COUNT 3.31 M/mm3 (4.10-5.30); REDCELL DISTRIBUTION WIDTH-CV 15.2 % (11.5-14.5)
[2017-08-14 04:14] LABS: HEMATOCRIT 32.6 % (37.0-47.0)
[2017-08-14 04:19] LABS: ALBUMIN 2.9 gm/dL (3.5-5.0); BILIRUBIN,TOTAL 0.4 mg/dL (0.0-1.0); CREATININE, serum 0.72 mg/dL (0.52-1.25); MAGNESIUM 2.1 mg/dL (1.6-2.3); PHOSPHOROUS 3.7 mg/dL (2.5-4.5); TOTAL PROTEIN 5.6 gm/dL (6.4-8.2)
[2017-08-15] VITALS (886 sets, daily range): BP systolic 153–178; BP diastolic 65–94; PULSE 53–65; TEMP 96.8–98.1; O2SAT 84–100
[2017-08-15 05:39] LABS: HEMOGLOBIN 11.2 g/dl (12.5-16.0); MEAN CELL VOLUME 95 fl (80.0-100.0); MEAN CORPUSCULAR HEMOGLOBIN 32 pg (27.0-31.0); MEAN CORPUSCULAR HGB CONC 34 g/dl (33.0-37.0); MEAN PLATELET VOLUME 10.3 fl (7.4-10.4); PLATELET COUNT 168 K/mm3 (130-400); REDCELL DISTRIBUTION WIDTH-CV 14.2 % (11.5-14.5)
[2017-08-15 05:51] LABS: CALCIUM 8.4 mg/dL (8.4-10.2); CREATININE, serum 0.7 mg/dL (0.52-1.25); POTASSIUM 3.6 mmol/L (3.4-5.0)
[2017-08-15 05:52] LABS: HEMATOCRIT 33.4 % (37.0-47.0)
[2017-08-15 08:42] LABS: BAND 3 % (0-10); HYPOCHROMIA 1+; LYMPHOCYTE 17 % (20.0-51.0); NEUTROPHILS 76 % (42.0-75.2); PLATELET ESTIMATE NORMAL (NORMAL)
[2017-08-16] VITALS (1109 sets, daily range): BP systolic 140–184; BP diastolic 67–85; PULSE 58–88; TEMP 97–98.1; O2SAT 89–100
[2017-08-16 05:13] LABS: HEMOGLOBIN 11.7 g/dl (12.5-16.0); MEAN CELL VOLUME 94 fl (80.0-100.0); MEAN CORPUSCULAR HEMOGLOBIN 32 pg (27.0-31.0); MEAN CORPUSCULAR HGB CONC 34 g/dl (33.0-37.0); MEAN PLATELET VOLUME 10.4 fl (7.4-10.4); PLATELET COUNT 189 K/mm3 (130-400); RED BLOOD COUNT 3.63 M/mm3 (4.10-5.30); REDCELL DISTRIBUTION WIDTH-CV 13.6 % (11.5-14.5)
[2017-08-16 05:29] LABS: CALCIUM 8.3 mg/dL (8.4-10.2); CREATININE, serum 0.73 mg/dL (0.52-1.25); MAGNESIUM 2.2 mg/dL (1.6-2.3); PHOSPHOROUS 3.6 mg/dL (2.5-4.5); POTASSIUM 3.5 mmol/L (3.4-5.0)
[2017-08-16 06:21] LABS: BAND 8 % (0-10); LYMPHOCYTE 10 % (20.0-51.0); NEUTROPHILS 82 % (42.0-75.2); PLATELET ESTIMATE NORMAL (NORMAL)
[2017-08-17] VITALS (672 sets, daily range): BP systolic 138–175; BP diastolic 74–100; PULSE 61–83; TEMP 97.1–98.9; O2SAT 92–100
[2017-08-17 06:05] LABS: ALBUMIN 3.2 gm/dL (3.5-5.0); BILIRUBIN,TOTAL 0.8 mg/dL (0.0-1.0); CALCIUM 8.6 mg/dL (8.4-10.2); CREATININE, serum 0.73 mg/dL (0.52-1.25); MAGNESIUM 2.3 mg/dL (1.6-2.3); PHOSPHOROUS 3.6 mg/dL (2.5-4.5); POTASSIUM 3.6 mmol/L (3.4-5.0); TOTAL PROTEIN 6.3 gm/dL (6.4-8.2)
[2017-08-17 06:13] LABS: PRE ALBUMIN 24.3 mg/dL (17.6-36.0)
[2017-08-18] VITALS (349 sets, daily range): BP systolic 118–158; BP diastolic 49–71; PULSE 59–80; TEMP 97–99.1; O2SAT 92–100
[2017-08-18 05:29] LABS: HEMOGLOBIN 12.7 g/dl (12.5-16.0); MEAN CELL VOLUME 91 fl (80.0-100.0); MEAN CORPUSCULAR HEMOGLOBIN 32 pg (27.0-31.0); MEAN CORPUSCULAR HGB CONC 35 g/dl (33.0-37.0); MEAN PLATELET VOLUME 10.7 fl (7.4-10.4); PLATELET COUNT 194 K/mm3 (130-400); REDCELL DISTRIBUTION WIDTH-CV 13.2 % (11.5-14.5)
[2017-08-18 05:41] LABS: HEMATOCRIT 36.5 % (37.0-47.0)
[2017-08-18 05:52] LABS: BAND 6 % (0-10); LYMPHOCYTE 6 % (20.0-51.0); METAMYELOCYTE 1 % (0-0); NEUTROPHILS 82 % (42.0-75.2); PLATELET ESTIMATE NORMAL (NORMAL)
[2017-08-19 04:38] VITALS: BP 127/44; PULSE 61; TEMP 97.9
[2017-08-19 07:57] VITALS: BP 154/65; PULSE 73; TEMP 98.5
[2017-08-19 12:04] VITALS: BP 123/58; PULSE 65; TEMP 98.5
[2017-08-19 16:42] VITALS: BP 135/51; PULSE 68; TEMP 98.5
[2017-08-19 19:37] VITALS: BP 144/60; PULSE 67; TEMP 98.8
[2017-08-20] VITALS (7 sets, daily range): BP systolic 116–167; BP diastolic 40–72; PULSE 61–100; TEMP 98.1–99.1
[2017-08-20 06:20] LABS: HEMOGLOBIN 11.6 g/dl (12.5-16.0); MEAN CELL VOLUME 94 fl (80.0-100.0); MEAN CORPUSCULAR HEMOGLOBIN 32 pg (27.0-31.0); MEAN CORPUSCULAR HGB CONC 34 g/dl (33.0-37.0); MEAN PLATELET VOLUME 10.7 fl (7.4-10.4); PLATELET COUNT 166 K/mm3 (130-400); RED BLOOD COUNT 3.59 M/mm3 (4.10-5.30); REDCELL DISTRIBUTION WIDTH-CV 13.4 % (11.5-14.5)
[2017-08-20 06:27] LABS: HEMATOCRIT 33.7 % (37.0-47.0)
[2017-08-20 06:35] LABS: CALCIUM 8.2 mg/dL (8.4-10.2); CREATININE, serum 0.76 mg/dL (0.52-1.25); POTASSIUM 3.2 mmol/L (3.4-5.0)
[2017-08-20 07:19] LABS: BAND 7 % (0-10); LYMPHOCYTE 5 % (20.0-51.0); NEUTROPHILS 87 % (42.0-75.2); PLATELET ESTIMATE NORMAL (NORMAL)
[2017-08-21 04:29] VITALS: BP 157/55; PULSE 75; TEMP 98.3
[2017-08-21 07:26] LABS: HEMOGLOBIN 11.7 g/dl (12.5-16.0); MEAN CELL VOLUME 93 fl (80.0-100.0); MEAN CORPUSCULAR HEMOGLOBIN 32 pg (27.0-31.0); MEAN CORPUSCULAR HGB CONC 34 g/dl (33.0-37.0); MEAN PLATELET VOLUME 10.3 fl (7.4-10.4); PLATELET COUNT 162 K/mm3 (130-400); RED BLOOD COUNT 3.68 M/mm3 (4.10-5.30); REDCELL DISTRIBUTION WIDTH-CV 13.3 % (11.5-14.5)
[2017-08-21 07:29] LABS: HEMATOCRIT 34.1 % (37.0-47.0)
[2017-08-21 07:35] LABS: ALBUMIN 2.8 gm/dL (3.5-5.0); BILIRUBIN,TOTAL 0.6 mg/dL (0.0-1.0); CALCIUM 8.2 mg/dL (8.4-10.2); CREATININE, serum 0.78 mg/dL (0.52-1.25); POTASSIUM 3.3 mmol/L (3.4-5.0); TOTAL PROTEIN 5.5 gm/dL (6.4-8.2)
[2017-08-21 08:01] LABS: BAND 3 % (0-10); BASOPHIL 1 % (0-2); LYMPHOCYTE 6 % (20.0-51.0); NEUTROPHILS 89 % (42.0-75.2); PLATELET ESTIMATE NORMAL (NORMAL)
[2017-08-21 08:03] VITALS: BP 157/74; PULSE 72; TEMP 98.9
[2017-08-21 12:26] VITALS: BP 122/67; PULSE 62; TEMP 99.4
[2017-08-21 14:47] LABS: COLLECTION METHOD CLEAN CATCH
[2017-08-21 14:56] LABS: MUCOUS Present /lpf; PH 7 (5-8); SQUAMOUS EPITHELIAL None Seen /hpf; URINE APPEARANCE Clear; URINE BACTERIA Rare /hpf; URINE BILIRUBIN Negative (NEGATIVE); URINE BLOOD Negative (NEGATIVE); URINE COLOR Yellow; URINE GLUCOSE Negative (NEGATIVE); URINE KETONE Negative (NEGATIVE); URINE LEUKOCYTE ESTERASE Trace (NEGATIVE); URINE NITRATE Negative (NEGATIVE); URINE PROTEIN(semi-quant) Negative (NEGATIVE); URINE RBC 0-2 /hpf; URINE UROBILINOGEN Negative (NEGATIVE)
[2017-08-21 16:42] VITALS: BP 149/52; PULSE 69; TEMP 98.9
[2017-08-21 19:18] VITALS: BP 134/47; PULSE 69; TEMP 98.1
[2017-08-22] VITALS (7 sets, daily range): BP systolic 116–153; BP diastolic 50–68; PULSE 62–68; TEMP 97.9–100
[2017-08-22 09:10] LABS: BASO % 0.2 % (0.0-2.0); EOS % 0.2 % (0-4.0); GRAN # 13.3 (1.4-6.5); GRAN % 71.2 % (42.2-75.2); HEMOGLOBIN 11.1 g/dl (12.5-16.0); LYMPH # 3.3 (1.2-3.4); LYMPH % 17.4 % (20.0-51.0); MEAN CELL VOLUME 95 fl (80.0-100.0); MEAN CORPUSCULAR HEMOGLOBIN 31 pg (27.0-31.0); MEAN CORPUSCULAR HGB CONC 33 g/dl (33.0-37.0); MEAN PLATELET VOLUME 11.5 fl (7.4-10.4); MONO # 1.3 (0.1-0.6); MONO % 6.9 % (1.7-9.3); PLATELET COUNT 157 K/mm3 (130-400); RED BLOOD COUNT 3.54 M/mm3 (4.10-5.30); REDCELL DISTRIBUTION WIDTH-CV 13.7 % (11.5-14.5)
[2017-08-22 09:15] LABS: HEMATOCRIT 33.5 % (37.0-47.0)
[2017-08-22 09:32] LABS: CREATININE, serum 0.8 mg/dL (0.52-1.25); POTASSIUM 3.3 mmol/L (3.4-5.0)
[2017-08-23 03:06] VITALS: BP 139/66; PULSE 66; TEMP 98.6
[2017-08-23 07:56] VITALS: BP 144/62; PULSE 65; TEMP 98.9
[2017-08-23 11:21] VITALS: BP 139/55; PULSE 66; TEMP 98.3
[2017-08-23 15:57] VITALS: BP 100/46; PULSE 64; TEMP 98.7
[2017-08-23 20:35] VITALS: BP 124/56; PULSE 70; TEMP 98.8
[2017-08-23 23:13] VITALS: BP 146/57; PULSE 68; TEMP 98.3
[2017-08-24 03:17] VITALS: BP 136/58; PULSE 70; TEMP 97.9
[2017-08-24 06:42] LABS: MEAN CELL VOLUME 99 fl (80.0-100.0); MEAN CORPUSCULAR HGB CONC 33 g/dl (33.0-37.0); MEAN PLATELET VOLUME 10.9 fl (7.4-10.4); PLATELET COUNT 149 K/mm3 (130-400); RED BLOOD COUNT 3.09 M/mm3 (4.10-5.30); REDCELL DISTRIBUTION WIDTH-CV 14.1 % (11.5-14.5)
[2017-08-24 06:51] LABS: HEMATOCRIT 30.5 % (37.0-47.0); HEMOGLOBIN 9.9 g/dl (12.5-16.0); MEAN CORPUSCULAR HEMOGLOBIN 32 pg (27.0-31.0)
[2017-08-24 07:01] LABS: CALCIUM 7.7 mg/dL (8.4-10.2); CREATININE, serum 0.76 mg/dL (0.52-1.25); POTASSIUM 4.1 mmol/L (3.4-5.0)
[2017-08-24 07:30] LABS: ANISOCYTOSIS 1+; BAND 1 % (0-10); LYMPHOCYTE 16 % (20.0-51.0); NEUTROPHILS 78 % (42.0-75.2); PLATELET ESTIMATE DECREASED (NORMAL)
[2017-08-24 07:44] VITALS: BP 127/46; PULSE 74; TEMP 98.2
[2017-08-24 11:37] VITALS: BP 113/47; PULSE 68; TEMP 98.7
[2017-08-24 16:13] VITALS: BP 107/43; PULSE 80; TEMP 98.5
[2017-08-24 19:07] VITALS: BP 132/56; PULSE 81
[2017-08-24 23:54] VITALS: BP 147/70; PULSE 71
[2017-08-25] VITALS (7 sets, daily range): BP systolic 115–146; BP diastolic 45–65; PULSE 62–75; TEMP 97.4–99.1
[2017-08-26 03:42] VITALS: BP 129/56; PULSE 67; TEMP 98.5
[2017-08-26 08:27] VITALS: BP 150/59; PULSE 67; TEMP 98.2
[2017-08-26 11:39] VITALS: BP 125/61; PULSE 60; TEMP 98.9
[2017-08-26] MEDS ORDERED: IPRATROPIUM BROM3 M1 IH (12:25)
[2017-08-26] MEDS ORDERED: TUSS PO (12:42)
[2017-08-26] MEDS ORDERED: SORE THROAT LOZ1 LO1 MM (12:42)
[2017-08-26] MEDS ORDERED: TESSALON PERLE200 MG PO (12:42)
[2017-08-26] MEDS ORDERED: CHLORASEPTIC 1180 M3 MM (12:43)
[2017-08-26] MEDS ORDERED: DECADRON 1MG TAB1 MG PO (12:44)
[2017-08-26 14:14] VITALS: BP 125/61; PULSE 60; TEMP 98.9
== END 2017-08-26 15:07 | DRG 208 ==
LOC: COL.ER 11:50 → ICU 14:14 → MEDICAL 08-18 10:12 → ICU 08-18 10:12 → MEDICAL 08-26 15:07
PROVIDERS: Emergency Medicine; Family Medicine; Nurse Practitioner Family; Physician Assistant; Student in an Organized Health Care Education/Training Program
PROC: 5A1945Z Respiratory Ventilation, 24-96 Consecutive Hours (ICD-10-PCS; 2017-08-10)
PROC: 0BH18EZ Insertion of Endotracheal Airway into Trachea, Via Natural or Artificial Opening Endoscopic (ICD-10-PCS; principal; 2017-08-10 19:30)
DX: J96.01 Acute respiratory failure with hypoxia (principal); E46 Unspecified protein-calorie malnutrition; Z68.41 Body mass index [BMI] 40.0-44.9, adult; B34.8 Other viral infections of unspecified site; J38.6 Stenosis of larynx; D86.9 Sarcoidosis, unspecified; I12.9 Hypertensive chronic kidney disease with stage 1 through stage 4 chronic kidney disease, or unspecified chronic kidney disease; N18.3 Chronic kidney disease, stage 3 (moderate); I69.311 Memory deficit following cerebral infarction; E87.6 Hypokalemia
CPT/HCPCS: 99222; 99231-AI; 99232-AI; 99233-AI; A4314; A9284; C1751; C9113; J0171; J0330; J0360; J0456; J0696; J1100; J1650; J1885; J1940; J2060; J2405; J2704; J2920; J2930; J3010; J3370; J3475; J7030; J7040; J7050; J7070; J7120; J7512; J8540; Q9967

== ENCOUNTER → 2017-09-01 | Outpatient (REF) ==
[~2017-09-01] MED LIST changes: +BUSPAR5 MG PO; +DECADRON 1MG TAB1 MG PO; +IPRATROPIUM BROM3 M1 IH; +MOBIC15 MG PO; +PERCOCET 325 MG1 TA2 PO; +PRILOSEC 20MG20 MG PO; +SORE THROAT LOZ1 LO1 MM; +TESSALON PERLE200 MG PO; +VANTIN100 MG; +VITAMIN D 1001000 IU
[2017-09-01 17:56] LABS: COLLECTION METHOD CLEAN CATCH
[2017-09-01 18:04] LABS: PH 6 (5-8); SQUAMOUS EPITHELIAL 0-2 /hpf; URINE APPEARANCE Clear; URINE BACTERIA None Seen /hpf; URINE BILIRUBIN Negative (NEGATIVE); URINE BLOOD Negative (NEGATIVE); URINE COLOR Yellow; URINE GLUCOSE Negative (NEGATIVE); URINE KETONE Negative (NEGATIVE); URINE LEUKOCYTE ESTERASE 2+ (NEGATIVE); URINE NITRATE Negative (NEGATIVE); URINE PROTEIN(semi-quant) Negative (NEGATIVE); URINE UROBILINOGEN Negative (NEGATIVE); URINE WBC 20-50 /hpf
== END ==
LOC: ZCOL.LAB 17:53
PROVIDERS: Internal Medicine
DX: N39.0 Urinary tract infection, site not specified (principal)

== ENCOUNTER 2018-02-18 15:27 | Inpatient (IN) | payer MEDICARE ==
[~2018-02-18] VITALS: Ht 160 cm; Wt 108.2 kg
[~2018-02-18 15:27] MED LIST changes: +ATARAX 25MG25 MG/TAB PO; +RT ADVAIR HFA 1112 G IH
[2018-03-30] VITALS (10 sets, daily range): BP systolic 111–160; BP diastolic 46–68; PULSE 64–81; TEMP 97.7–98.6
[2018-03-30] MEDS ORDERED: ABILIFY5 MG PO (03:31)
[2018-03-30] MEDS ORDERED: COREG12.5 MG PO (03:33)
[2018-03-30] MEDS ORDERED: REGLAN 5MG T5 MG/TAB PO (03:40)
[2018-03-30] MEDS ORDERED: AMBIEN 10MG10 MG PO (03:43)
[2018-03-30] MEDS ORDERED: VITAMIND3 5000 PO (03:44)
[2018-03-30] MEDS ORDERED: D3-5050000 IU PO (03:45)
[2018-03-30] MEDS ORDERED: RT ADVAIR HFA 1112 G IH (05:32)
[2018-03-30] MEDS ORDERED: COREG 25MG25 MG/TAB PO (05:35)
--- NOTE | 2018-03-30 06:15 | NUR ---
Patient prepared for surgery with no incidents. Admission B and assessment completed. Med-rec updated and completed. Allergies reviewed and confirmed. IV start attempted by ROLO Oconnor twice. INT started to right hand. Right knee scrubbed. Pedal pulses marked. CARSONE mira hose applied. Patient sent down to OR at this time with Fausto.
--- NOTE | 2018-03-30 11:45 | NUR ---
PATIENT NOW AWAKE AND REQUESTING SOMETHING FOR PAIN IN RLE. RATES PAIN AT 6/10 IN RLE. GAVE PRN ROXICODONE, TWO TABS WITH CRACKERS. VSS. WILL MONITOR.
--- NOTE | 2018-03-30 20:45 | NUR ---
Assessment completed. Patient is A&O x 4. VSS, currently on 2 liters of supplemental O2 via nasal cannula. Pain is being controlled with scheduled Oxycodone, Tylenol ES and IV Morphine for breakthrough. Aquacell dressing to right knee is CDI with technol brace maintained to knee. Pedal pulses intact. Encouraged ankle pumps. BLE mira hose/scd on. Tolerating diet with no c/o nausea. Ruiz catheter to DD with yellow clear urine draining. IVF infusing with intermittent antibiotic. Ambulated approximately 20 feet in the hallway with staff this evening with walker and gait belt, gait slow and steady. Denies any concerns or needs at this time. Bed is in a low position with call light in reach.
--- NOTE | 2018-03-31 01:30 | NUR ---
Patient has been resting well in bed between nursing disruptions after requesting prn Rahulien. Technol brace maintained to RLE and elevated on pillows. Denies needing any pain medication at this time or any other concerns.
[2018-03-31 02:12] VITALS: BP 152/77; BP 172/77; PULSE 90; TEMP 98.6
[2018-03-31 05:17] VITALS: BP 145/76; PULSE 86; TEMP 98
--- NOTE | 2018-03-31 05:44 | NUR ---
Patient has rested well through the night after receiving prn Ambien. VSS. Pain has been controlled with scheduled Oxycodone and Tylenol with 1 dose of IV Morphine last night for breakthrough pain after ambulating. Technol brace removed at this time. Aquacell dressing to right knee remains CDI with an ice pack applied this morning. Ruiz catheter remains to DD with yellow clear urine draining. IV to INT this morning after last antibiotic. Denies any concerns or needs at this time. Bed remains in a low position with call light in reach.
--- NOTE | 2018-03-31 06:45 | NUR ---
awake resting in bed, bedside shift report received from ROLO Gaines
[2018-03-31 07:06] LABS: HEMOGLOBIN 10.9 g/dl (12.5-16.0)
[2018-03-31 07:13] LABS: HEMATOCRIT 33.3 % (37.0-47.0)
[2018-03-31 07:26] VITALS: BP 152/75; PULSE 79; TEMP 98.9
--- NOTE | 2018-03-31 08:00 | NUR ---
sitting up in bed eating breakfast
--- NOTE | 2018-03-31 08:45 | NUR ---
has had breakfast and tolerated well, full assessment completed, see interventions for further info, c/o pain 10/16 and medicated with roxicodone 10mg
--- NOTE | 2018-03-31 08:51 | NUR ---
occupational therapy in to visit with patient
--- NOTE | 2018-03-31 10:07 | NUR ---
physical therapy in to work with patient, ambulated out to [facility] and then back to room and into recliner
--- NOTE | 2018-03-31 11:35 | NUR ---
remains up in recliner and appears to be dozing, awakened for vital signs, O2 sats in the high 80s and placed on O2 at 2l/nc
[2018-03-31 11:55] VITALS: BP 160/71; PULSE 78; TEMP 98.2
--- NOTE | 2018-03-31 12:10 | NUR ---
remains up in chair, has ordered lunch, c/o pain and medicated with hydrocodone 7.5mg 2 tabs
--- NOTE | 2018-03-31 13:26 | NUR ---
ambulated out to [facility] with physical therapy for group exercises
--- NOTE | 2018-03-31 14:21 | NUR ---
ambulated back to room after therapy and assisted into bed, will finish lunch and then try to rest
--- NOTE | 2018-03-31 14:35 | NUR ---
c/o some shortness of breath, cardiopulmonary notified and asked to provided nebulizer treatment, ahn cath discontinued and tolerated well
--- NOTE | 2018-03-31 15:07 | NUR ---
bed alarm starting to go off, entered the room and patient sitting up on side of bed, reminded her she is not to get up without calling, she thought she had, assisted into bathroom and voided small amount, cardiopulmonary in to provide nebulizer treatment
--- NOTE | 2018-03-31 15:09 | NUR ---
ROLO JOHNSON CALLED DUE TO PT HAVING AUDIBLE EXPIRATORY WHEEZE. PT IN BATHROOM ON RA PRIOR TO TREATMENT ON EXERTION SPO2 DECREASED TO 86%. PT GIVEN DUONEB PRN TX AT THIS TIME, AND PLACED ON 2L NC. NO DISTRESS NOTED. PT TOLERATED TREATMENT WELL.
--- NOTE | 2018-03-31 15:36 | NUR ---
MARC met with the patient to discuss discharge plan. The patient [place] with her , Agustin. She reports independence with ADLs and has a walker and home oxygen through [employer]. The patient's PCP is Dr. Reina Park and she receives her medications at either the [facility] or the [facility] in [place]. She reports no difficulties obtaining her meds. The patient's advanced directives are in EMR. The patient plans to return home with her upon discharge and receive outpatient therapy at [facility] on 04/02. No additional needs at this time.
[2018-03-31 15:49] VITALS: BP 152/72; PULSE 79; TEMP 98.2
--- NOTE | 2018-03-31 16:15 | NUR ---
in bed and appears to be sleeping, resp quiet and easy
--- NOTE | 2018-03-31 16:53 | NUR ---
resting in bed ready to order supper, is alert and oriented now, earlier was talking about vietnamese doors and when she was told this she even remembered it,
--- NOTE | 2018-03-31 18:19 | NUR ---
appears to be sleeping,
--- NOTE | 2018-03-31 18:25 | NUR ---
bed alarm sound and she was attempting to get up to bathroom independently, assisted into bathroom and voided qs, supper here
--- NOTE | 2018-03-31 18:49 | NUR ---
bedside shift report given to Regla Gaines
--- NOTE | 2018-03-31 19:00 | NUR ---
Received report from ROLO Dsouza. Patient is sitting up in bed, stated she was ready to get ready for the morning. Re-orientated patient that it is evening time. Bed is in a low position with bed alarm on for confusion and reports of being impulsive for day shift.
[2018-03-31 19:18] VITALS: BP 122/89; PULSE 77; TEMP 97.9
--- NOTE | 2018-03-31 19:35 | NUR ---
Bed alarm sounding, patient's set off bed alarm. has concerns that patient appears to be confused and can't keep her eyes open as she now appears to be drowsy. Patient is mumbling about things that do not make sense and quickly drifts off to sleep. Visited with the about giving patient Tylenol for pain now instead of the narcotics due to her confusion and drowsiness. Aquacell dressing to right knee is CDI with a fresh ice pack applied. BLE mira hose/scds on. is leaving for the evening at this time. Bed is in a low position with bed alarm set for sensitive position and call light within reach. Night meds given, had to assist patient in taking meds as she was unable to get the meds in her mouth at this time due to be drowsy.
--- NOTE | 2018-03-31 23:50 | NUR ---
Patient used call button to use the bathroom. Patient appeared to be A&O x 4 and answering questions appropriately, does not remember being confused earlier. Ambulated to the bathroom with assist x 1 with walker, gait slow and steady. Once back into bed and repositioned patient started talking about being in her house with her house keeper, reminded patient she was in the hospital. Patient requested pain medication for her right knee pain, prn Tylenol given at this time. Bed remains in a low position with bed alarm on and call light within reach.
[2018-04-01] VITALS (7 sets, daily range): BP systolic 110–156; BP diastolic 51–86; PULSE 78–98; TEMP 97.8–99.6
--- NOTE | 2018-04-01 04:00 | NUR ---
Bed alarm sounding, patient sitting up on the edge of the bed. When asked what she was doing she stated she was sitting there waiting for the man who told her to and talking about cleaning her house. Patient reminded again that she is in the hospital and assisted back into bed. BLE mira hose removed at this time as they continue to roll down and cut into the patient's thighs. Fall precautions remain in place.
--- NOTE | 2018-04-01 05:36 | NUR ---
Patient has rested intermittently through the night, continues to have some confusion and drowsiness this morning. VSS. Tylenol given for pain control through the night instead of narcotics due to patient's confusion. Aquacell dressing to right knee remains CDI with an ice pack maintained. Up multiple times to use the restroom, gait continues to be slow and steady. Denies any concerns or needs at this time. Bed remains in a low position with bed alarm on and call light in reach.
[2018-04-01 06:40] LABS: HEMOGLOBIN 10.6 g/dl (12.5-16.0)
[2018-04-01 06:44] LABS: HEMATOCRIT 32.5 % (37.0-47.0)
--- NOTE | 2018-04-01 07:15 | NUR ---
Report given to ROLO Murdock
[2018-04-01 07:36] LABS: ALBUMIN 3.6 gm/dL (3.5-5.0); BILIRUBIN,TOTAL 0.5 mg/dL (0.0-1.0); CALCIUM 8.7 mg/dL (8.4-10.2); CREATININE, serum 0.92 mg/dL (0.52-1.25); POTASSIUM 4.1 mmol/L (3.4-5.0); TOTAL PROTEIN 6.5 gm/dL (6.4-8.2)
--- NOTE | 2018-04-01 08:00 | NUR ---
PATIENT IS VERY CONFUSED THIS AM. INCUBATOR MACHINE OPERATOR REPORTS NOT GIVING ANY NARCOTICS LAST NIGHT DUE TO INCREASED CONFUSION AND LETHARGIC. PATIENT IS ABLE TO ANSWER SOME QUESTIONS CORRECTLY. PATIENT KNOWS SHE IS IN [facility] AND HAS HAD KNEE SURGERY BUT IS CONFUSED ABOUT THE TIME OF DAY. PATIENT IS MAKING STATEMENT LIKE "EVERYTHING WAS FINE LAST NIGHT TILL THE RUBBER BAND". WHEN ASKED FOR CLARIFICATION, THE PATIENT REPEATS THE SAME PHRASE. PATIENT HAS TRIED SEVERAL TIMES TO GET OUT OF BED ON HER OWN. BED ALARM WENT OFF. PATIENT IS CONFUSED ABOUT CALL LIGHT. ORTHO ROUNDED THIS AM AND ORDERED ADDITIONAL LABS WHICH WERE NOT IMPRESSIVE. VSS. PATIENT DOESN'T C/O PAIN. RTK DRESSING IS CD&I WITH AQUACEL. TEDS TO BLE. SCD'S CURRENTLY OFF. POSITIVE PEDAL PULSES. HEAD TO TOE ASSESSMENT COMPLETED. IV TO INT. PATIENT EAT/DRINK/VOIDING OK. AM MEDS GIVEN. NO NARCOTICS. PATIENT FALLING ASLEEP FREQUENTLY. CALL LIGHT IN REACH. BED ALARM ON.
--- NOTE | 2018-04-01 09:20 | NUR ---
RESPIRATORY REPORTED TO NURSING, WHILE ROUNDING THE PATIENT TOLD HER SHE HAD A HEALTHY BABY UNDER HER BLANKETS. WHEN THE RESPIRATORY STAFF ASKED HER TO REPEAT HERSELF, PATIENT AGAIN POINTED TO HER COVERS AND SAID "I HAVE A HEALTHY BABY UNDER HERE.
--- NOTE | 2018-04-01 10:10 | NUR ---
PATIENT CALLED OUT TO GET READY FOR THE "COMMERCIAL". PATIENT IS STILL VERY CONFUSED AT TIME. WHEN ASKED WHAT COMMERCIAL, PATIENT TRIES TO CONVINCE THE NURSE THERE WILL BE A COMMERCIAL FILMED TODAY IN HER ROOM. NURSING TRIED TO REORIENT PATIENT. PATIENT KNOWNS SHE IS AT [facility] FOR HER KNEE SURGERY BUT IS ALSO CONFUSED ON THE TIME OF DAY. PATIENT HAS NOT HAD ANY NARCOTICS. WILL MONITOR.
--- NOTE | 2018-04-01 10:27 | NUR ---
PATIENT FREQUENTLY TALKING IN HER SLEEP
--- NOTE | 2018-04-01 12:00 | NUR ---
PATIENT REQUENTLY TRYING TO GET OUT OF CHAIR AND SETTING OFF ALARM. PATIENT THINKGS SHE NEEDS TO GO SOMEWHERE. PATIENT'S MOTHER NOW AT BEDSIDE. PATIENT VISITING WITH GUESTS AND IS DISTRACTED.
--- NOTE | 2018-04-01 13:40 | NUR ---
TALKED WITH ORTHO REGUARDING PATIENT'S INCREASED CONFUSION. PATIENT HAS SET OFF HER ALARM AND BE FOUND GETTING UP MULTIPLE TIMES TODAY WITHOUT CALLING FOR SOLUTIONS ARCHITECT CONSULTANT AND WITHOUT WALKER. SEE ORDERS.
--- NOTE | 2018-04-01 14:00 | NUR ---
HOSPITALIST CONSULTED FOR INCREASED CONFUSION.
[2018-04-01 15:46] LABS: BASO % 0.2 % (0.0-2.0); EOS % 0.2 % (0-4.0); GRAN # 9.8 (1.4-6.5); GRAN % 76.6 % (42.2-75.2); LYMPH # 1.6 (1.2-3.4); LYMPH % 12.5 % (20.0-51.0); MEAN CELL VOLUME 95 fl (80.0-100.0); MEAN CORPUSCULAR HEMOGLOBIN 32 pg (27.0-31.0); MEAN CORPUSCULAR HGB CONC 34 g/dl (33.0-37.0); MEAN PLATELET VOLUME 10.8 fl (7.4-10.4); MONO # 1.2 (0.1-0.6); MONO % 9.5 % (1.7-9.3); PLATELET COUNT 214 K/mm3 (130-400); RED BLOOD COUNT 3.47 M/mm3 (4.10-5.30); REDCELL DISTRIBUTION WIDTH-CV 16.5 % (11.5-14.5)
[2018-04-01 15:48] LABS: HEMATOCRIT 32.8 % (37.0-47.0)
--- NOTE | 2018-04-01 20:21 | NUR ---
Pt. sitting up in bed watching TV. Pt. is alert and oriented to self and place. Pt. has a difficult time with current time or time of events. Pt. assisted to and from bathroom with 1 assist, gait belt, walker, and technol brace. Shift assessment complete. Dressing to rt. knee CDI. Pt. reported pain at an 8 on pain scale, gave pain meds per orders. Also placed ice pack to rt. knee. Pt. positioned for comfort in bed. Pt. denies further needs, call light within reach, bed alarm on.
[2018-04-02 03:57] VITALS: BP 139/52; PULSE 76; TEMP 98.2
[2018-04-02 06:55] LABS: BASO % 0.4 % (0.0-2.0); EOS # 0.2 (0.0-0.7); EOS % 1.8 % (0-4.0); GRAN # 8.1 (1.4-6.5); GRAN % 73.4 % (42.2-75.2); HEMOGLOBIN 10.3 g/dl (12.5-16.0); LYMPH # 1.6 (1.2-3.4); LYMPH % 14.5 % (20.0-51.0); MEAN CELL VOLUME 93 fl (80.0-100.0); MEAN CORPUSCULAR HEMOGLOBIN 30 pg (27.0-31.0); MEAN CORPUSCULAR HGB CONC 32 g/dl (33.0-37.0); MEAN PLATELET VOLUME 10.7 fl (7.4-10.4); MONO % 8.6 % (1.7-9.3); PLATELET COUNT 200 K/mm3 (130-400); RED BLOOD COUNT 3.42 M/mm3 (4.10-5.30); REDCELL DISTRIBUTION WIDTH-CV 15.9 % (11.5-14.5)
--- NOTE | 2018-04-02 06:55 | NUR ---
awake resting in bed, bedside shift report received from ROLO Rodriguez
[2018-04-02 06:58] LABS: HEMATOCRIT 31.8 % (37.0-47.0)
[2018-04-02 07:07] LABS: CALCIUM 8.6 mg/dL (8.4-10.2); CREATININE, serum 0.84 mg/dL (0.52-1.25); POTASSIUM 3.8 mmol/L (3.4-5.0)
[2018-04-02 08:15] VITALS: BP 145/75; PULSE 81; TEMP 98.3
--- NOTE | 2018-04-02 08:15 | NUR ---
in bed and has had breakfast, is alert and oriented this am, medicated with hydrocodone m5 1 tab for c/os pain and in anticipation of therapy, assisted up to bathroom and moves with steady gait
--- NOTE | 2018-04-02 09:02 | NUR ---
ambulated out to [facility] with physical therapy for group exercises
--- NOTE | 2018-04-02 10:01 | NUR ---
Initial visit; Patient responded to Revenue Enforcement Agent and thanked her for offering God's blessings and to keep her in Revenue Enforcement Agent's prayers.
--- NOTE | 2018-04-02 10:30 | NUR ---
back in bed after therapy and resting
--- NOTE | 2018-04-02 11:48 | NUR ---
MARC and SW student met with the patient to discuss therapies recommendation of home with outpatient therapy vs post-acute rehab. The patient reports that she is interested in post-acute rehab. MARC discussed options and presented and explained the patient choice form. The patient only preferred [facility]. MARC has contacted and faxed a referral to Crispin at [facility]. SW awaiting their screening.
[2018-04-02 12:10] VITALS: BP 122/52; PULSE 69; TEMP 99.2
--- NOTE | 2018-04-02 12:10 | NUR ---
resting in bed, denies needs
--- NOTE | 2018-04-02 13:01 | NUR ---
ambulating out to [facility] with physical therapy for group exercises
[2018-04-02] MEDS ORDERED: ASPI325T6 PO (13:32)
[2018-04-02] MEDS ORDERED: ULTRAM 50MG TAB50 MG PO (13:33)
[2018-04-02] MEDS ORDERED: SENOKOT S 50 MG1 TAB PO (13:33)
[2018-04-02] MEDS ORDERED: NORCO 325 MG-51 TAB PO (13:33)
--- NOTE | 2018-04-02 13:38 | NUR ---
Dr Villavicencio in to see patient and Myriam MAIER
--- NOTE | 2018-04-02 13:49 | NUR ---
Crispin, at [facility], reports that they have to get a pre-cert and authorization from the patient's insurance before they can accept the patient. SW informed the patient's nurse and doctor. SW to continue to follow.
--- NOTE | 2018-04-02 14:00 | NUR ---
c/o pain after therapy, medicated with hydrocodone 5mg 1 tab
--- NOTE | 2018-04-02 15:20 | NUR ---
resting in bed visiting with friends
[2018-04-02 15:43] VITALS: BP 130/98; PULSE 66; TEMP 98.1
--- NOTE | 2018-04-02 15:52 | NUR ---
Crispin, at [facility], reports that they can accept the patient for a skilled stay. SW to inform the patient and continue to follow.
--- NOTE | 2018-04-02 16:50 | NUR ---
resting in bed, aqaucel dressing to right knee removed, incision intact without drainage, steri strips placed and incision covered with airstrip dressing
[2018-04-02 17:33] LABS: COLLECTION METHOD CLEAN CATCH
[2018-04-02 17:39] LABS: PH 6 (5-8); SQUAMOUS EPITHELIAL 0-2 /hpf; URINE APPEARANCE Clear; URINE BACTERIA None Seen /hpf; URINE BILIRUBIN Negative (NEGATIVE); URINE BLOOD Negative (NEGATIVE); URINE COLOR Yellow; URINE GLUCOSE Negative (NEGATIVE); URINE KETONE Negative (NEGATIVE); URINE LEUKOCYTE ESTERASE Negative (NEGATIVE); URINE NITRATE Negative (NEGATIVE); URINE PROTEIN(semi-quant) Negative (NEGATIVE); URINE RBC 0-2 /hpf; URINE UROBILINOGEN Negative (NEGATIVE)
--- NOTE | 2018-04-02 18:26 | NUR ---
resting in bed watching TV after having had supper
--- NOTE | 2018-04-02 19:00 | NUR ---
bedside shift report given to ROLO Rodriguez
[2018-04-02 19:37] VITALS: BP 131/58; PULSE 75; TEMP 98.2
--- NOTE | 2018-04-02 20:40 | NUR ---
Pt. laying in bed at this time. Pt. is A&OX3, assessment complete. Dressing to rt. knee CDI. Pt. reports pain at a 6 on pain scale. Pain med per orders. Pt. denies pain or other needs, call light within reach.
--- NOTE | 2018-04-02 23:43 | NUR ---
PT DOESN'T WEAR A CPAP AT HOME, WILL NOT WEAR ONE IN HOSPITAL WEARS 2LPM NC AT NIGHT PER DR. CARMONA. PT WILL WEAR 02 AT NIGHT. PT ON RA DURING DAY. NO DISTRESS NOTED AT THIS TIME
[2018-04-03 04:09] VITALS: BP 143/57; PULSE 68; TEMP 98.2
--- NOTE | 2018-04-03 05:50 | NUR ---
Pt. slept well through the night. Pt. remains A&OX3. Dressing to rt. knee unchanged. Pt. reports knee fells better with technol brace on. Pt. reports pain "ok" at this time. Pt. denies further needs, call light within reach.
[2018-04-03 08:00] VITALS: BP 134/59; PULSE 78; TEMP 98
--- NOTE | 2018-04-03 08:31 | NUR ---
Patient a/o x4, lying in bed. Pain 6/7 after prn pain medication given. Patient states, pain is manageable. Patient ready to be dc'ed to rehab.
--- NOTE | 2018-04-03 10:42 | NUR ---
MARC action: SW recieved call for DC, SW contacted [facility] for Transport. Setup for 11 am, faxed DC orders. Nothing Follows
[2018-04-03 10:56] VITALS: BP 134/59; PULSE 78; TEMP 98
--- NOTE | 2018-04-03 11:46 | NUR ---
Patient d/c'ed via w/c and assist of [facility] staff. Verified with [employer] TANKER DRIVER that patient will have access to pain meds at the facility. Patient declined to wear brace. Right knee dressing changed with aquacell.
== END 2018-04-03 11:48 | DRG 470 ==
LOC: JCC 03-30 05:10
PROVIDERS: Nurse Practitioner Family; ADMIT Orthopaedic Surgery
PROC: 0SRC0J9 Replacement of Right Knee Joint with Synthetic Substitute, Cemented, Open Approach (ICD-10-PCS; principal; 2018-03-30 07:30)
DX: M17.11 Unilateral primary osteoarthritis, right knee (principal); Z68.41 Body mass index [BMI] 40.0-44.9, adult; F11.921 Opioid use, unspecified with intoxication delirium; F05 Delirium due to known physiological condition; N18.3 Chronic kidney disease, stage 3 (moderate); Z86.73 Personal history of transient ischemic attack (TIA), and cerebral infarction without residual deficits; R73.03 Prediabetes; D86.0 Sarcoidosis of lung; G47.33 Obstructive sleep apnea (adult) (pediatric); E66.9 Obesity, unspecified; F32.9 Major depressive disorder, single episode, unspecified; I12.9 Hypertensive chronic kidney disease with stage 1 through stage 4 chronic kidney disease, or unspecified chronic kidney disease; G40.909 Epilepsy, unspecified, not intractable, without status epilepticus; E78.5 Hyperlipidemia, unspecified; K21.9 Gastro-esophageal reflux disease without esophagitis
CPT/HCPCS: 99222; 99231-AI; A4314; A9284; C1713; C1776; J0690; J1100; J2250; J2270; J2704; J3010; J7030; J7120

== ENCOUNTER → 2018-03-26 | Outpatient (CLI) | payer MEDICARE ==
[~2018-03-26] MED LIST changes: +ABILIFY5 MG PO; +REGLAN 5MG T5 MG/TAB PO; +VITAMIND3 5000 PO
== END ==
LOC: COL.LAB 13:03
DX: Z01.812 Encounter for preprocedural laboratory examination (principal)

== ENCOUNTER → 2018-06-15 | Outpatient (CLI) | payer MEDICARE ==
[~2018-06-15] MED LIST changes: +SENOKOT S 50 MG1 TAB PO; +ULTRAM 50MG TAB50 MG PO
[2018-06-15 09:02] LABS: BASO % 0.4 % (0.0-2.0); EOS # 0.3 (0.0-0.7); EOS % 3.4 % (0-4.0); GRAN # 5.5 (1.4-6.5); GRAN % 69.5 % (42.2-75.2); HEMATOCRIT 37.7 % (37.0-47.0); HEMOGLOBIN 12.5 g/dl (12.5-16.0); LYMPH # 1.6 (1.2-3.4); LYMPH % 20.1 % (20.0-51.0); MEAN CELL VOLUME 91 fl (80.0-100.0); MEAN CORPUSCULAR HEMOGLOBIN 30 pg (27.0-31.0); MEAN CORPUSCULAR HGB CONC 33 g/dl (33.0-37.0); MEAN PLATELET VOLUME 9.3 fl (7.4-10.4); MONO # 0.5 (0.1-0.6); MONO % 6.1 % (1.7-9.3); PLATELET COUNT 275 K/mm3 (130-400); RED BLOOD COUNT 4.13 M/mm3 (4.10-5.30); REDCELL DISTRIBUTION WIDTH-CV 13.5 % (11.5-14.5)
[2018-06-15 09:30] LABS: ERYTHROCYTE SEDIMENTATION RATE 12 mm/hr (0-30)
== END ==
LOC: COL.LAB 08:29
PROVIDERS: Orthopaedic Surgery
DX: Z96.651 Presence of right artificial knee joint (principal)

== ENCOUNTER 2018-09-22 14:30 | Outpatient (RCR) | payer MEDICARE | END 2018-10-10 | LOC: MKS.ESL.PT | DX: Z01.818 Encounter for other preprocedural examination (principal); Z96.651 Presence of right artificial knee joint ==

== ENCOUNTER 2018-11-01 16:02 | Outpatient (RCR) | payer MEDICARE | END 2019-01-18 16:40 | disposition home or self-care (01) | LOC: MKS.ESL.PT 16:02 | DX: Z96.651 Presence of right artificial knee joint (principal) ==

== ENCOUNTER → 2018-12-02 | Outpatient (CLI) | payer MEDICARE | LOC: COL.RAD 10:54 | DX: Z01.812 Encounter for preprocedural laboratory examination (principal); R22.1 Localized swelling, mass and lump, neck | CPT/HCPCS: Q9967 ==

== ENCOUNTER → 2018-12-21 | Outpatient (CLI) | payer MEDICARE | LOC: MC.RAD 08:18 | DX: Z12.31 Encounter for screening mammogram for malignant neoplasm of breast (principal); N64.89 Other specified disorders of breast ==

== ENCOUNTER → 2018-12-23 | Outpatient (CLI) | payer MEDICARE | LOC: MC.RAD 12:47 | DX: N63.22 Unspecified lump in the left breast, upper inner quadrant (principal); N64.89 Other specified disorders of breast ==

== ENCOUNTER 2019-03-07 08:10 | Emergency (ER) | payer MEDICARE ==
[2008-01-18 22:48] VITALS: BP 156/78
[~2019-03-07] VITALS: Ht 160 cm; Wt 112.7 kg
[2019-03-07 08:21] VITALS: BP 194/91; PULSE 70; TEMP 98.3
== END 2019-03-07 09:10 | disposition home or self-care (01) ==
LOC: COL.ER 08:10
DX: M25.541 Pain in joints of right hand (principal); M79.644 Pain in right finger(s); I10 Essential (primary) hypertension; Z90.89 Acquired absence of other organs; Z86.73 Personal history of transient ischemic attack (TIA), and cerebral infarction without residual deficits; Z79.82 Long term (current) use of aspirin; Z79.51 Long term (current) use of inhaled steroids

== ENCOUNTER → 2019-08-03 | Outpatient (CLI) | payer MEDICARE | LOC: MC.RAD 11:08 | DX: R92.8 Other abnormal and inconclusive findings on diagnostic imaging of breast (principal) ==

== ENCOUNTER → 2020-02-23 | Outpatient (CLI) | payer MEDICARE ==
[~2020-02-23] MED LIST changes: +HCTZ12.5TAB PO; +MEDROL 4MG DOSPA4 MG PO; +PREDNISONE10 MG PO
== END ==
LOC: MC.RAD 10:00
DX: R92.8 Other abnormal and inconclusive findings on diagnostic imaging of breast (principal)

== ENCOUNTER 2020-07-24 08:45 | Outpatient (RCR) | payer MEDICARE ==
[~2020-07-24 08:45] MED LIST changes: +VITAMIN D31000 I1 PO
== END 2020-08-01 | disposition home or self-care (01) ==
LOC: WSST
DX: R41.841 Cognitive communication deficit (principal); R41.3 Other amnesia

== ENCOUNTER 2020-08-28 09:45 | Outpatient (RCR) | payer MEDICARE | END 2020-11-06 | disposition home or self-care (01) | LOC: WSST | DX: F32.9 Major depressive disorder, single episode, unspecified (principal); R41.841 Cognitive communication deficit ==

== ENCOUNTER 2020-09-21 09:02 | Outpatient (CLI) | payer MEDICARE ==
[2008-01-18 22:48] VITALS: BP 156/78
--- NOTE | 2020-09-12 13:17 | NUR ---
PT CHANGED HER APPT TO 09/21 @ [id number]
[~2020-09-21] VITALS: Ht 162.6 cm; Wt 109.3 kg
[2020-09-21] VITALS (8 sets, daily range): BP systolic 127–159; BP diastolic 65–88; PULSE 65–72
--- NOTE | 2020-09-21 10:18 | NUR ---
PT TAKEN BACK TO [facility]
--- NOTE | 2020-09-21 12:00 | NUR ---
DC instructions reviewed with pt, she expresses understanding. C/o usual back pain. No headache or nausea. Has drank water and orange juice without issue. Steady on feet. Assisted out to mother's car by wheelchair.
== END 2020-09-21 12:28 | disposition home or self-care (01) ==
LOC: COL.RAD 09:02
DX: M51.36 Other intervertebral disc degeneration, lumbar region (principal); M48.061 Spinal stenosis, lumbar region without neurogenic claudication; M48.07 Spinal stenosis, lumbosacral region; Z98.890 Other specified postprocedural states
CPT/HCPCS: Q9965

== ENCOUNTER 2020-11-26 08:03 | Emergency (ER) | payer MEDICARE ==
[~2020-11-26] VITALS: Ht 162.6 cm; Wt 104.5 kg
[2020-11-26 08:49] VITALS: TEMP 98.2
[2020-11-26 09:51] LABS: BASO % 0.5 % (0.0-2.0); EOS # 0.3 (0.0-0.7); EOS % 4.1 % (0-4.0); GRAN # 5.3 (1.4-6.5); GRAN % 66.2 % (42.2-75.2); HEMATOCRIT 37.9 % (37.0-47.0); HEMOGLOBIN 12.8 g/dl (12.5-16.0); LYMPH # 1.8 (1.2-3.4); LYMPH % 22.4 % (20.0-51.0); MEAN CELL VOLUME 95 fl (80.0-100.0); MEAN CORPUSCULAR HEMOGLOBIN 32 pg (27.0-31.0); MEAN CORPUSCULAR HGB CONC 34 g/dl (33.0-37.0); MEAN PLATELET VOLUME 10.2 fl (7.4-10.4); MONO # 0.5 (0.1-0.6); MONO % 6.3 % (1.7-9.3); PLATELET COUNT 214 K/mm3 (130-400); RED BLOOD COUNT 4.01 M/mm3 (4.10-5.30); REDCELL DISTRIBUTION WIDTH-CV 13.1 % (11.5-14.5)
[2020-11-26 10:09] LABS: ALANINE AMINOTRANSFERASE 28 U/L (4-34); ALKALINE PHOSPHATASE 83 U/L (50-136); ANION GAP 9 mmol/L (7-16); AST,SGOT 29 U/L (15-37); BILIRUBIN,TOTAL 0.7 mg/dL (0.0-1.0); BLOOD UREA NITROGEN 16 mg/dL (7-17); C-REACTIVE PROTEIN 0.9 mg/dL (0.0-0.9); CALCIUM 9.1 mg/dL (8.4-10.2); CARBON DIOXIDE 25 mmol/L (22-30); CHLORIDE 108 mmol/L (98-107); CREATININE, serum 0.98 (0.52-1.25); GLUCOSE 100 mg/dL (74-106); LIPASE 40 U/L (23-300); POTASSIUM 3.7 mmol/L (3.4-5.0); SODIUM 141 mmol/L (137-145); TOTAL PROTEIN 6.9 gm/dL (6.4-8.2)
[2020-11-26 10:36] LABS: TROPONIN-I < 0.012 ng/mL (0.000-0.035)
[2020-11-26] MEDS ORDERED: NORCO 325 MG-51 TAB PO (12:33)
[2020-11-26] MEDS ORDERED: ZOFRAN ODT4 MG PO (12:33)
[2020-11-26] MEDS ORDERED: PROTONIX 40MG T40 MG PO (12:33)
[2020-11-26 12:51] VITALS: BP 173/69; PULSE 60
== END 2020-11-26 12:56 | disposition home or self-care (01) ==
LOC: COL.ER 08:03
PROVIDERS: Emergency Medicine
DX: K44.9 Diaphragmatic hernia without obstruction or gangrene (principal); I12.9 Hypertensive chronic kidney disease with stage 1 through stage 4 chronic kidney disease, or unspecified chronic kidney disease; N18.30 Chronic kidney disease, stage 3 unspecified; Z86.73 Personal history of transient ischemic attack (TIA), and cerebral infarction without residual deficits; Z90.49 Acquired absence of other specified parts of digestive tract; Z90.710 Acquired absence of both cervix and uterus; Z79.899 Other long term (current) drug therapy
CPT/HCPCS: C9113; J2270; J2405; J2550; J7030; Q9967

== ENCOUNTER → 2021-06-17 | Outpatient (CLI) | payer MEDICARE ==
[~2021-06-17] MED LIST changes: +ZOFRAN ODT4 MG PO
== END ==
LOC: COL.RAD 10:44
DX: I70.1 Atherosclerosis of renal artery (principal); I10 Essential (primary) hypertension
CPT/HCPCS: A9562; J1940

== ENCOUNTER → 2021-08-08 | Outpatient (CLI) | payer MEDICARE | LOC: COL.RAD 13:45 | DX: Z01.812 Encounter for preprocedural laboratory examination (principal); I65.22 Occlusion and stenosis of left carotid artery | CPT/HCPCS: Q9967 ==

== ENCOUNTER 2021-08-28 17:11 | Emergency (ER) | payer MEDICARE ==
[~2021-08-28] VITALS: Ht 162.6 cm; Wt 104.5 kg
[2021-08-28 19:18] LABS: BASO % 0.4 % (0.0-2.0); EOS # 0.3 K/mm3 (0.0-0.7); EOS % 2.7 % (0.0-4.0); GRAN # 7.1 K/mm3 (1.4-6.5); GRAN % 67.2 % (42.2-75.2); HEMATOCRIT 37.7 % (37.0-47.0); HEMOGLOBIN 12.5 g/dl (12.5-16.0); LYMPH # 2.3 K/mm3 (1.2-3.4); LYMPH % 21.3 % (20.0-51.0); MEAN CELL VOLUME 98 fl (80.0-100.0); MEAN CORPUSCULAR HEMOGLOBIN 33 pg (27-31); MEAN CORPUSCULAR HGB CONC 33 g/dl (33.0-37.0); MEAN PLATELET VOLUME 10.1 fl (7.4-10.4); MONO # 0.8 K/mm3 (0.1-0.6); MONO % 7.9 % (1.7-9.3); PLATELET COUNT 239 K/mm3 (130-400); RED BLOOD COUNT 3.83 M/mm3 (4.10-5.30); REDCELL DISTRIBUTION WIDTH-CV 13.2 % (11.5-14.5)
[2021-08-28 19:24] LABS: PROTHROMBIN TIME 11.5 SECONDS (9.7-12.8)
[2021-08-28 19:26] LABS: PARTIAL THROMBOPLASTIN TIME 32.4 SECONDS (26.0-37.0)
[2021-08-28 19:31] LABS: ALBUMIN 3.7 gm/dL (3.4-4.8); ANION GAP 10 mmol/L (7-16); BLOOD UREA NITROGEN 19 mg/dL (10-20); CALCIUM 9.2 mg/dL (8.4-10.2); CARBON DIOXIDE 21 mmol/L (23-31); CHLORIDE 110 mmol/L (98-107); CREATININE, serum 1.05 mg/dL (0.57-1.11); GLUCOSE 96 mg/dL (70-99); POTASSIUM 4.2 mmol/L (3.5-4.5); SODIUM 141 mmol/L (136-145)
[2021-08-28 19:41] LABS: TROPONIN-I < 0.010 ng/mL (0.00-0.033)
[2021-08-29 00:02] VITALS: BP 140/70; PULSE 69; TEMP 98.7
== END 2021-08-29 00:02 | disposition home or self-care (01) ==
LOC: COL.ER 17:11
PROVIDERS: Emergency Medicine
DX: M54.2 Cervicalgia (principal); I10 Essential (primary) hypertension
CPT/HCPCS: J2765; Q9967

== ENCOUNTER 2022-07-08 20:48 | Emergency (ER) | payer MEDICARE ==
[~2022-07-08] VITALS: Ht 162.6 cm; Wt 84.1 kg
[2022-07-08 20:54] VITALS: TEMP 98.5
[2022-07-08 21:37] LABS: BASO % 0.4 % (0.0-2.0); EOS # 0.4 K/mm3 (0.0-0.7); EOS % 5.2 % (0.0-4.0); GRAN # 5.3 K/mm3 (1.4-6.5); GRAN % 62.5 % (42.2-75.2); HEMOGLOBIN 12.9 g/dl (12.5-16.0); LYMPH # 1.9 K/mm3 (1.2-3.4); LYMPH % 22.9 % (20.0-51.0); MEAN CELL VOLUME 93 fl (80.0-100.0); MEAN CORPUSCULAR HEMOGLOBIN 32 pg (27-31); MEAN CORPUSCULAR HGB CONC 34 g/dl (33.0-37.0); MEAN PLATELET VOLUME 9.5 fl (7.4-10.4); MONO # 0.8 K/mm3 (0.1-0.6); MONO % 8.8 % (1.7-9.3); PLATELET COUNT 271 K/mm3 (130-400); RED BLOOD COUNT 4.07 M/mm3 (4.10-5.30); REDCELL DISTRIBUTION WIDTH-CV 12.5 % (11.5-14.5)
[2022-07-08 21:54] LABS: ALANINE AMINOTRANSFERASE 14 U/L (0-55); ALKALINE PHOSPHATASE 88 U/L (40-150); ANION GAP 10 mmol/L (7-16); AST,SGOT 20 U/L (5-34); BILIRUBIN,TOTAL 0.5 mg/dL (0.2-1.2); BLOOD UREA NITROGEN 25 mg/dL (10-20); CALCIUM 9.9 mg/dL (8.4-10.2); CARBON DIOXIDE 21 mmol/L (23-31); CHLORIDE 106 mmol/L (98-107); GLUCOSE 95 mg/dL (70-99); POTASSIUM 4.5 mmol/L (3.5-4.5); SODIUM 137 mmol/L (136-145); TOTAL PROTEIN 7.3 gm/dL (6.2-8.1)
[2022-07-08 22:14] LABS: TSH w REFLEX 0.944 uIU/mL (0.350-4.940)
[2022-07-08 22:15] LABS: TROPONIN-I < 0.010 ng/mL (0.00-0.033)
[2022-07-09 00:45] VITALS: BP 102/69; PULSE 77
== END 2022-07-09 00:59 | disposition home or self-care (01) ==
LOC: COL.ER 20:48
PROVIDERS: Emergency Medicine
DX: R55 Syncope and collapse (principal); R79.89 Other specified abnormal findings of blood chemistry; I12.9 Hypertensive chronic kidney disease with stage 1 through stage 4 chronic kidney disease, or unspecified chronic kidney disease; N18.30 Chronic kidney disease, stage 3 unspecified; Z79.899 Other long term (current) drug therapy; Z28.311 Partially vaccinated for COVID-19
CPT/HCPCS: J7120

== ENCOUNTER 2023-03-14 18:50 | Emergency (ER) | payer MEDICARE ==
[~2023-03-14] VITALS: Ht 160 cm; Wt 76.8 kg
[2023-03-14 18:59] VITALS: TEMP 97.8
[2023-03-14 19:18] LABS: BASO % 0.4 % (0.0-2.0); EOS # 0.2 K/mm3 (0.0-0.7); EOS % 1.7 % (0.0-4.0); GRAN # 6.2 K/mm3 (1.4-6.5); GRAN % 66.8 % (42.2-75.2); HEMATOCRIT 39.2 % (37.0-47.0); HEMOGLOBIN 13.2 g/dl (12.5-16.0); LYMPH # 2.4 K/mm3 (1.2-3.4); LYMPH % 25.4 % (20.0-51.0); MEAN CELL VOLUME 97 fl (80.0-100.0); MEAN CORPUSCULAR HEMOGLOBIN 33 pg (27-31); MEAN CORPUSCULAR HGB CONC 34 g/dl (33.0-37.0); MEAN PLATELET VOLUME 9.8 fl (7.4-10.4); MONO # 0.5 K/mm3 (0.1-0.6); MONO % 5.4 % (1.7-9.3); PLATELET COUNT 264 K/mm3 (130-400); RED BLOOD COUNT 4.05 M/mm3 (4.10-5.30); REDCELL DISTRIBUTION WIDTH-CV 13.2 % (11.5-14.5)
[2023-03-14 19:29] LABS: ALANINE AMINOTRANSFERASE 17 U/L (0-55); ALBUMIN 3.8 gm/dL (3.4-4.8); ALKALINE PHOSPHATASE 83 U/L (40-150); ANION GAP 13 mmol/L (7-16); AST,SGOT 15 U/L (5-34); BILIRUBIN,TOTAL 0.5 mg/dL (0.2-1.2); BLOOD UREA NITROGEN 14 mg/dL (10-20); CALCIUM 9.3 mg/dL (8.4-10.2); CARBON DIOXIDE 18 mmol/L (23-31); CHLORIDE 108 mmol/L (98-107); CREATININE, serum 1.04 mg/dL (0.57-1.11); GLUCOSE 137 mg/dL (70-99); POTASSIUM 3.7 mmol/L (3.5-4.5); SODIUM 139 mmol/L (136-145); TOTAL PROTEIN 7.2 gm/dL (6.2-8.1)
[2023-03-14 19:29] LABS: COLLECTION METHOD CLEAN CATCH
[2023-03-14 19:41] LABS: TROPONIN-I < 0.010 ng/mL (0.00-0.033)
[2023-03-14 19:50] LABS: URINE APPEARANCE Cloudy (CLEAR/HAZY); URINE COLOR Yellow (YELLOW); URINE PROTEIN(semi-quant) TRACE (NEGATIVE)
[2023-03-14 19:51] LABS: SQUAMOUS EPITHELIAL 0-2 /hpf (0-10); URINE BLOOD Negative (NEGATIVE); URINE GLUCOSE Negative (NEGATIVE); URINE KETONE TRACE (NEGATIVE); URINE NITRATE Negative (NEGATIVE); URINE UROBILINOGEN 0.2 E.U/dL (0.2-1.0)
[2023-03-14] MEDS ORDERED: CEFTIN500 MG PO (20:06)
[2023-03-14 20:41] VITALS: BP 141/84; PULSE 64
== END 2023-03-14 20:42 | disposition home or self-care (01) ==
LOC: COL.ER 18:50
PROVIDERS: Nurse Practitioner
DX: N39.0 Urinary tract infection, site not specified (principal); I10 Essential (primary) hypertension
CPT/HCPCS: J0696

== ENCOUNTER → 2023-03-18 | Outpatient (CLI) | payer MEDICARE ==
[~2023-03-18] MED LIST changes: +CEFTIN500 MG PO
== END ==
LOC: MC.RAD 13:20
DX: Z12.31 Encounter for screening mammogram for malignant neoplasm of breast (principal)